=== PATIENT | female | born 1965 | race Caucasian/White ===

== ENCOUNTER 2023-01-19 10:15 | Outpatient (OUT) | payer OTHER, SELFPAY ==
[2023-01-19 10:38] LABS: Clarity Urine CLEAR (CLEAR); Color Urine DK. ORANGE (YELLOW)
[2023-01-19 10:39] LABS: Bilirubin Urine COLOR INTERFERENCE (NEGATIVE); Blood Urine COLOR INTERFERENCE (NEGATIVE); Glucose Urine UA COLOR INTERFERENCE mg/dL (NEGATIVE); Ketones Urine COLOR INTERFERENCE mg/dL (NEGATIVE); Leukocyte Esterase Urine COLOR INTERFERENCE (NEGATIVE); Nitrite Urine COLOR INTERFERENCE (NEGATIVE); Protein Urine COLOR INTERFERENCE mg/dL (NEG/TRACE); Urobilinogen Urine COLOR INTERFERENCE EU/dL (0.2-1.0); pH Urine COLOR INTERFERENCE (5.0-9.0)
== END 2023-01-19 10:16 | disposition home or self-care (01) ==
PROVIDERS: PCP Family Medicine; Visit Provider Nurse Practitioner Family
DX: R30.0 Dysuria (principal)
CPT/HCPCS: 81003; 87086; 87150; 87186

== ENCOUNTER 2023-01-20 13:46 | Outpatient (OUT) | payer OTHER, SELFPAY ==
--- NOTE | 2023-01-20 13:53 | US_ITS ---
The [address] [address] Patient Name: TRACEY THOMAS MRN: [id number] date: 1965 Sex: F Assigned Patient Location: [facility] Current Patient Location: [facility] Accession/Order Number: [id number] Exam Date: 01/20/2023 14:00 Report Date: 01/20/2023 14:50 At the request of: NICKO MEJÍA Procedure: US appendix EXAM: US appendix HISTORY: Dysuria R30.0 Right lower quadrant pain COMPARISON: None. TECHNIQUE: Real-time Limited abdomen ultrasound Findings: Nonvisualization of the appendix. No significant right lower quadrant free fluid. US/US appendix IMPRESSION: 1. Nonvisualization of the appendix. Electronically authenticated by: ADELINA SUTHERLAND Date: 01/20/2023 14:50
== END 2023-01-20 13:47 | disposition home or self-care (01) ==
PROVIDERS: PCP Family Medicine; Visit Provider Family Medicine
DX: R30.0 Dysuria (principal)
CPT/HCPCS: 76705

== ENCOUNTER 2023-01-22 15:16 | Outpatient (OUT) | payer OTHER, SELFPAY ==
--- NOTE | 2023-01-22 16:55 | CT_ITS ---
The [address] [address] Patient Name: TRACEY THOMAS MRN: [id number] date: 1965 Sex: F Assigned Patient Location: CT Current Patient Location: CT Accession/Order Number: [id number] Exam Date: 01/22/2023 16:40 Report Date: 01/22/2023 20:32 At the request of: NICKO MEJÍA Procedure: CT abdomen pelvis w con CT abdomen pelvis w con CLINICAL HISTORY: Kidney infection on antibiotics. Right lower quadrant abdominal and flank pain. Dysuria R30.0, Lower abdominal pain R10.30 COMPARISON: CT pelvis dated 06/15/2022. TECHNIQUE: Axial CT from lung bases through symphysis pubis following the injection of 100 mL of Omnipaque 300 iodinated contrast material. Oral contrast was administered. Coronal and sagittal reconstructions generated. Dose reduction techniques were achieved by using automated exposure control and/or adjustment of mA and/or kV according to patient size and/or use of iterative reconstruction technique. FINDINGS: CT ABDOMEN FINDINGS: Normal heart size. Lung bases with slight scarring but no acute process. Liver and spleen are normal in size. There is a too small to characterize right hepatic lobe 7 mm hypodensity. Bilateral adrenal indeterminate nodules on this postcontrast exam. 16 mm on the right and 22 mm on the left. Gallbladder and pancreas are grossly unremarkable. Normal bilateral renal enhancement with no perinephric edema. No abnormal enhancement or perinephric collection. No hydronephrosis or gross stones. Symmetric bilateral renal excretion of contrast on delayed imaging without filling defects. Slightly unfolded thoracic aorta without aneurysm. No retroperitoneal adenopathy. GI tract nondilated without obstruction. Appendix is negative. No other significant inflammatory change or ascites. Mild colonic diverticulosis without diverticulitis. CT PELVIS FINDINGS: Atrophic uterus and right ovary. 2.6 cm simple appearing cyst left ovary/adnexa, similar to prior. Urinary bladder demonstrates moderate cystocele. Otherwise unremarkable with no definite wall thickening or inflammatory change. No inguinal or pelvic sidewall adenopathy. There are chronic partially but incompletely healed left superior and inferior pubic rami deformities and also involving the medial acetabulum. Lumbar spondylosis. CT/CT abdomen pelvis w con IMPRESSION: Indeterminant bilateral adrenal nodules and too small characterize right hepatic lobe hypodensity. Recommend multiphasic MRI abdomen without and with IV contrast. Left adnexal cystic lesion similar to June 2022. Probably postmenopausal cyst but recommend follow-up pelvic ultrasound in one year. Urinary bladder with moderate cystocele. No gross wall thickening or inflammatory change. Upper urinary tract and kidneys are unremarkable. No CT evidence of pyelonephritis. No hydronephrosis. Electronically authenticated by: TEDDY KAUFFMAN Date: 01/22/2023 20:32
== END 2023-01-22 15:17 | disposition home or self-care (01) ==
LOC: CT 15:17
PROVIDERS: PCP Family Medicine; Visit Provider Family Medicine
DX: R30.0 Dysuria (principal); R10.30 Lower abdominal pain, unspecified
CPT/HCPCS: 74177; Q9967

== ENCOUNTER 2023-03-04 13:02 | Outpatient (OUT) | payer OTHER, SELFPAY ==
--- NOTE | 2023-03-04 | MR_ITS ---
[address] [address] Patient Name: TRACEY THOMAS MRN: [id number] date: 1965 Sex: F Assigned Patient Location: MRI Current Patient Location: Accession/Order Number: [id number] Exam Date: 03/04/2023 13:10 Report Date: 03/08/2023 07:50 At the request of: NICKO MEJÍA Procedure: MR abdomen wo/w con EXAMINATION: MR abdomen wo/w con HISTORY: liver cyst K76.89 COMPARISON: 01/22/2023 TECHNIQUE: A comprehensive MRI examination of the abdomen was performed to optimize visualization of suspected pathology. Images were obtained both before and after intravenous administration of Dotarem contrast. FINDINGS: LIVER: 6 mm nonenhancing area of signal abnormality in the right hepatic lobe best seen on axial image #13, a simple cyst is favored BILIARY: No visible dilatation or calcification. PANCREAS: No lesion, fluid collection, ductal dilatation, or atrophy. SPLEEN: No enlargement or focal lesion. KIDNEYS: No mass or obstruction. ADRENALS: Bilateral adrenal nodules with decrease in signal on out of phase versus in phase imaging consistent with adenomas AORTA/VASCULAR: No aneurysm or dissection. RETROPERITONEUM: No mass or adenopathy. BOWEL/MESENTERY: No visible mass, obstruction, or bowel wall thickening. ABDOMINAL WALL: No mass or hernia. BONES: No bony lesion or fracture. LUNG BASES: No visible pleural disease. Lung bases not well assessed with MRI. OTHER: Negative. MR/MR abdomen wo/w con IMPRESSION: 6 mm right hepatic lobe simple cyst Bilateral renal adenomas Electronically authenticated by: JEFF CARDONA Date: 03/08/2023 07:50
== END 2023-03-04 13:03 | disposition home or self-care (01) ==
LOC: MRI 13:03
PROVIDERS: PCP Family Medicine; Visit Provider Family Medicine
DX: K76.89 Other specified diseases of liver (principal); D30.02 Benign neoplasm of left kidney; D30.01 Benign neoplasm of right kidney
CPT/HCPCS: 74183; A9575

== ENCOUNTER 2023-05-04 13:40 | Outpatient (OUT) | payer OTHER, SELFPAY ==
--- OUTSIDE RECORDS SUMMARY | 2023-05-04 13:46 | XMS_ITS | CCD ---
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 MAGNESIUM ORAL CALCIUM CARBONATE/VITAMIN D3 (VITAMIN D-3 ORAL) POTASSIUM (POTASSIMIN ORAL) VITAMIN B COMPLEX (B COMPLEX 1 ORAL) BLACK COHOSH ORAL BIOFLAV/MV-MN/SOYB/EVEPR/HRB32 (WOMENS MENOPAUSE ANNETTA [place] ORAL) methylPREDNISolone (MEDROL, [place],) 4 mg Dose-Pack diclofenac XR (VOLTAREN-XR) 100 mg Tb24 HYDROcodone-Acetaminophen 7.5-325 mg per tablet PROZAC 20MG PULVULE Review of Systems: Reviewed and charted into [facility]. Physical Exam: PE reveals a female with the following vitals signs: Ht 177.8 cm (5' 10 ) Wt 90.7 kg (200 lb) BMI 28.70 kg/m Body mass index is 28.7 kg/m . General appearance: Well appearing, alert, in no acute distress, well-hydrated, well nourished. Psych: Mood and affect broad and appropriate Head: Normocephalic, no masses, lesions, tenderness or abnormalities Eyes: Anicteric sclera. Pupils are equally round and reactive to light. Extraocular movements are intact. ENT: Nares patent The patient has a stable gait with crutches. HIP EXAM: Right Left Hip extension 0 degrees 10 degrees Hip flexion 90 degrees 90 degrees Remainder of MSK exam deferred to prevent displacing fractures Motor/sensory function: Intact Radiology Findings: (I have reviewed appropriate radiology images and reports.) 06/05/22 XR Pelvis and Bilateral Femurs: Nondisplaced fractures of the left superior and inferior pubic ramus. The superior pubic ramus fracture is at the base of the ramus at the junction with the acetabulum. No acetabular fracture seen otherwise. Maintained sacroiliac joints and pubic symphysis. Minimal degenerative changes of both hip joints. Lower lumbar degenerative disc changes. Mild to moderate degenerative changes of both knees. No other acute fracture or dislocation. There are no bony erosions. 06/03/22 CT Pelvis [ Report only] : 1.Subacute, partially healed fractures involving the left superior and inferior pubic rami, with an age- indeterminate fracture through the medial left acetabular wall. This may represent an acute fracture. No additional traumatic changes are seen in the pelvis Assessment: (S32.592A) Closed fracture of multiple pubic rami, left, initial encounter ([facility]) (primary encounter diagnosis) (S32.475A) Closed nondisplaced fracture of medial wall of left acetabulum, initial encounter ([facility]) Plan: Based upon the evaluation today and after discussions with the patient, we will proceed with the following: - NWB x 6 weeks with crutches - Repeat x-ray in 6 weeks - Alternate Diclofenac and Tylenol up to every 4 hours to help with pain - Ice and Compression with Erwin wrap recommended - Patient informed to have disc of CT images sent to our office - RTC PRN; We will reach out via telephone in 6 weeks after reviewing x-ray of pelvis for next steps in treatment All patient questions were addressed and patient is satisfied with plan of care. documented in this encounter [facility] 06-05-2022 Note HNO ID: [id number] Author: RT Jaqui(R) Service: ? Author Type: Technologist Type: Progress Notes Filed: 06/05/2022 2:50 PM Note Text: Radiology Service Progress Note PATIENT NAME: Tracey Thomas DATE OF SERVICE: June 05, 2022 TIME: 2:49 PM PATIENT IDENTITY VERIFICATION COMPLETED USING TWO (2) IDENTIFIERS: Name and Date of confirmed by patient verbally. FALL SCREENING: Has the patient had 2 falls in the last year or 1 fall with injury or currently using an Ambulatory Assistive Device (Walker, Cane, Wheelchair, Crutches, etc.)? Yes, Patient High Risk for Falls What interventions were put in place to prevent falls during this visit? Yellow Falls Risk Wristband Applied PATIENT GENDER DATA: Female. status: : No status: NO. PATIENT RELEVANT IMPLANT DATA REVIEWED: Not Applicable RADIOLOGY DEPARTMENT: General X-ray: Exam(s) Completed: Pelvis X-Ray: Pelvis inlet/outlet Lower Extremity X-Ray(s): Femur, Bilateral PERIPHERAL IV DATA: Not applicable SIGNED BY: RT Jaqui(R) June 05, 2022 2:49 PM [facility] 06-05-2022 History of Present illness Narrative Radiology Service Progress Note PATIENT NAME: Tracey Thomas DATE OF SERVICE: June 05, 2022 TIME: 2:49 PM PATIENT IDENTITY VERIFICATION COMPLETED USING TWO (2) IDENTIFIERS: Name and Date of confirmed by patient verbally. FALL SCREENING: Has the patient had 2 falls in the last year or 1 fall with injury or currently using an Ambulatory Assistive Device (Walker, Cane, Wheelchair, Crutches, etc.)? Yes, Patient High Risk for Falls What interventions were put in place to prevent falls during this visit? Yellow Falls Risk Wristband Applied PATIENT GENDER DATA: Female. status: : No status: NO. PATIENT RELEVANT IMPLANT DATA REVIEWED: Not Applicable RADIOLOGY DEPARTMENT: General X-ray: Exam(s) Completed: Pelvis X-Ray: Pelvis inlet/outlet Lower Extremity X-Ray(s): Femur, Bilateral PERIPHERAL IV DATA: Not applicable SIGNED BY: RT Jaqui(R) June 05, 2022 2:49 PM documented in this encounter [facility] 05-25-2022 Note PROCEDURE: XR HIP LT 2 3V WO PELVIS HISTORY: Pain of left hip joint COMPARISON: None. FINDINGS: BONES:Thin irregular lucency through superior and inferior left pubic ramus suspicious for fractures. Intact femoral head and hip joint. SOFT TISSUES:No visible soft tissue swelling. EFFUSION:None visible. OTHER: Negative. IMPRESSION: 1. Suspect nondisplaced to minimally displaced fractures of the left superior and inferior pubic rami. Consider CT pelvis for further evaluation. Findings are being called to the office of Dr. Manrique at this time. Electronically authenticated by: SAMUEL CASTRO Date: 2022-05-25 14:11 [facility] Evaluation note Diagnosis Closed fracture of multiple pubic rami, left, initial encounter ([facility])- Primary Closed nondisplaced fracture of medial wall of left acetabulum, initial encounter ([facility]) documented in this encounter [facility] note* Diagnosis Pain Generalized pain documented in this encounter [facility] note* Diagnosis Buttock pain- Primary Mylagia and myositis, unspecified Closed fracture of multiple pubic rami, left, initial encounter ([facility]) Closed nondisplaced fracture of medial wall of left acetabulum, initial encounter ([facility]) documented in this encounter [facility] note* Diagnosis Pain Generalized pain Closed fracture of multiple pubic rami, left, initial encounter ([facility]) Closed nondisplaced fracture of medial wall of left acetabulum, initial encounter ([facility]) documented in this encounter [facility] for referral (narrative)* Diagnostic Procedure Only (Routine) - Pending Review Specialty Diagnoses / Procedures Referred By Contac t Referred To Contact XR IMAGING Diagnoses Closed fracture of multiple pubic rami, left, initial encounter ([facility]) Closed nondisplaced fracture of medial wall of left acetabulum, initial encounter ([facility]) Procedures XR HIP GENERAL 3V PELV/AP/LAT LEFT RADEX HIP UNILATERAL WITH PELVIS 2-3 VIEWS Berto Monge PA-C [address] [place], [place] [id number] Xr Imaging Referral ID Status Reason Start Date Expiration Date Visits Requested Visits Authorized [id number] Pending Review Auto-Generat ed Referral 06/05/2022 07/05/2023 1 1 * Diagnostic Procedure Only (Routine) - Pending Review Specialty Diagnoses / Procedures Referred By Contac t Referred To Contact XR IMAGING Diagnoses Closed fracture of multiple pubic rami, left, initial encounter ([facility]) Closed nondisplaced fracture of medial wall of left acetabulum, initial encounter ([facility]) Procedures XR PELVIS 1V AP RADIOLOGIC EXAMINATION PELVIS 1/2 VIEWS Berto Monge PA-C [address] [place] [id number] Xr Imaging Referral ID Status Reason Start Date Expiration Date Visits Requested Visits Authorized [id number] Pending Review Auto-Generat ed Referral 06/05/2022 07/05/2023 1 1 [facility] for referral (narrative)* Diagnostic Procedure Only (Routine) - Closed Specialty Diagnoses / Procedures Referred By Contac t Referred To Contact XR IMAGING Diagnoses Pain Procedures XR FEMUR GENERAL 2V AP/LAT RIGHT RADIOLOGIC EXAMINATION FEMUR MINIMUM 2 VIEWS Berto Monge PA-C [address] [place] [address] Xr Imaging Referral ID Status Reason Start Date Expiration Date V isits Requested Visits Authorized [id number] Closed Auto-Generate d Referral 06/04/2022 07/04/2023 1 1 * Diagnostic Procedure Only (Routine) - Closed Specialty Diagnoses / Procedures Referred By Contac t Referred To Contact XR IMAGING Diagnoses Pain Procedures XR FEMUR GENERAL 2V AP/LAT LEFT RADIOLOGIC EXAMINATION FEMUR MINIMUM 2 VIEWS Berto Monge PA-C [address] [place] [address] Xr Imaging Referral ID Status Reason Start Date Expiration Date V isits Requested Visits Authorized [id number] Closed Auto-Generate d Referral 06/04/2022 07/04/2023 1 1 * Diagnostic Procedure Only (Routine) - Closed Specialty Diagnoses / Procedures Referred By Contac t Referred To Contact XR IMAGING Diagnoses Pain Procedures XR PELVIS 2V INLET/OUTLET RADIOLOGIC EXAMINATION PELVIS 1/2 VIEWS Berto Monge PA-C [address] [place] [address] Xr Imaging Referral ID Status Reason Start Date Expiration Date V isits Requested Visits Authorized [id number] Closed Auto-Generate d Referral 06/04/2022 07/04/2023 1 1 [facility] for referral (narrative)* Diagnostic Procedure Only (Routine) - Closed Specialty Diagnoses / Procedures Referred By Contac t Referred To Contact XR IMAGING Diagnoses Pain Procedures XR HIP BILATERAL 5V PEL/AP/LAT EACH HIP RADEX HIPS BILATERAL WITH PELVIS MINIMUM 5 VIEWS Berto Monge PA-C [address] [id number] Xr Imaging [place] [address] Referral ID Status Reason Start Date Expiration Date V isits Requested Visits Authorized [id number] Closed Auto-Generate d Referral 06/04/2022 07/04/2023 1 1 [facility] for visit Narrative* Diagnostic Procedure Only (Routine) - Closed Specialty Diagnoses / Procedures Referred By Contac t Referred To Contact XR IMAGING Diagnoses Closed fracture of multiple pubic rami, left, initial encounter ([facility]) Closed nondisplaced fracture of medial wall of left acetabulum, initial encounter ([facility]) Procedures XR HIP GENERAL 3V PELV/AP/LAT LEFT RADEX HIP UNILATERAL WITH PELVIS 2-3 VIEWS Berto Monge PA-C [address] [place] [address] Xr Imaging [place] [address] Referral ID Status Reason Start Date Expiration Date V isits Requested Visits Authorized [id number] Closed Auto-Generate d Referral 06/05/2022 07/05/2023 1 1 [facility] Summary Purpose Family History No Family History Records FoundNo Family History Records FoundNo Family History Records Found Advance Directives No Advanced Directives Records FoundNo Advanced Directives Records FoundNo Advanced Directives Records Found Reason for Referral Specialty Diagnoses / Procedures Referred By Contac t Referred To Contact [facility] [place] Diagnoses Closed fracture of multiple pubic rami, left, initial encounter ([facility]) Closed nondisplaced fracture of medial wall of left acetabulum, initial encounter ([facility]) Buttock pain Procedures CONSULT [facility] OFFICE/OUTPATIENT [facility] 60-74 MINUTES Yan Dallas MD [address] [place] [address] Referral ID Status Reason Start Date Expiration Date Visits Requested Visits Authorized [id number] Authorized PCP Requested Referral 06/23/2022 06/23/2023 1 1 Additional Source Comments INFORMATION SOURCE (unrecogn ized section and content) DATE CREATED AUTHOR 11/29/2017 Brnuilda alberto DATE CREATED AUTHOR AUTHOR'S ORGANIZ ATION 06/06/2022 [facility] DATE CREATED AUTHOR AUTHOR'S ORGANIZ ATION 07/18/2022 [facility] Source Comments (unrecognize d section and content) In the event this informatio n is protected by the Federal Confidentiality of Alcohol and Drug Abuse Patient Records regulations: The Federal rules restrict any use of the information to criminally investigate or prosecute any alcohol or drug abuse patient[facility] event this information is protected by the Federal Confidentiality of Alcohol and Drug Abuse Patient Records regulations: The Federal rules restrict any use of the information to criminally investigate or prosecute any alcohol or drug abuse patient.[facility] event this information is protected by the Federal Confidentiality of Alcohol and Drug Abuse Patient Records regulations: The Federal rules restrict any use of the information to criminally investigate or prosecute any alcohol or drug abuse patient.[facility] event this information is protected by the Federal Confidentiality of Alcohol and Drug Abuse Patient Records regulations: The Federal rules restrict any use of the information to criminally investigate or prosecute any alcohol or drug abuse patient.[facility] event this information is protected by the Federal Confidentiality of Alcohol and Drug Abuse Patient Records regulations: The Federal rules restrict any use of the information to criminally investigate or prosecute any alcohol or drug abuse patient.[facility] Reason for Visit (unrecogniz ed section and content) Reason Comments Fracture Reason Comments Radio Gen A21 Specialty Diagnoses / Procedures Referred By Contac t Referred To Contact XR IMAGING Diagnoses Pain Procedures XR FEMUR GENERAL 2V AP/LAT RIGHT RADIOLOGIC EXAMINATION FEMUR MINIMUM 2 VIEWS Berto Monge PA-C [address] [place] [address] Xr Imaging Referral ID Status Reason Start Date Expiration Date V isits Requested Visits Authorized [id number] Closed Auto-Generate d Referral 06/04/2022 07/04/2023 1 1 Reason Comments Radiology XR Care Teams (unrecognized sec tion and content) 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 Crew 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 Relationship Specialty Start Date End Date Nicko Manrique MD PCP - General Family Medicine 08/09/14 [employer] Specialist Relationship Specialty Start Date End Date Nicko Manrique MD PCP - General Family Medicine 08/09/14 [employer] Specialist Relationship Specialty Start Date End Date Nicko Manrique MD PCP - General Family Medicine 08/09/14 [employer] Crew Specialist Relationship Specialty Start Date End Date Nicko Manrique MD PCP - General Family Medicine 08/09/14 [employer] Crew Specialist Relationship Specialty Start Date End Date Nicko Manrique MD PCP - General Family Medicine 08/09/14 FOR RECORDS PERTAINING TO PATIENTS WHO ARE OR HAVE BEEN ENROLLED IN A CHEMICAL DEPENDENCY/SUBSTANCEABUSE PROGRAM, SOME INFORMATION MAY BE OMITTED. This clinical summary was aggregated from multiple sources. Caution should be exercised in using it in the provision of clinical care. This summary normalizes information from multiple sources, and as a consequence, information in this document may materially change the coding, format and clinical context of patient data. In addition, data may be omitted in some cases. CLINICAL DECISIONS SHOULD BE BASED ON THE PRIMARY CLINICAL RECORDS. [facility]. provides no warranty or guarantee of the accuracy or completeness of information in this document.
[2023-05-04 13:53] LABS: Bilirubin Urine NEGATIVE (NEGATIVE); Blood Urine NEGATIVE (NEGATIVE); Clarity Urine CLEAR (CLEAR); Color Urine LT. YELLOW (YELLOW); Glucose Urine UA NEGATIVE (NEGATIVE); Ketones Urine NEGATIVE (NEGATIVE); Leukocyte Esterase Urine TRACE (NEGATIVE); Nitrite Urine NEGATIVE (NEGATIVE); Protein Urine NEGATIVE (NEG/TRACE); Specific Gravity Urine <=1.005 (1.005-1.025); Urobilinogen Urine 0.2 EU/dL (0.2-1.0)
== END 2023-05-04 13:41 | disposition home or self-care (01) ==
LOC: LAB 13:43
PROVIDERS: PCP Family Medicine; Visit Provider Nurse Practitioner Family
DX: R30.0 Dysuria (principal)
CPT/HCPCS: 81003; 87086; 87150; 87186

== ENCOUNTER 2023-06-08 12:19 | Outpatient (OUT) | payer OTHER, SELFPAY ==
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
[2023-06-08 13:19] LABS: Bilirubin Urine NEGATIVE (NEGATIVE); Blood Urine NEGATIVE (NEGATIVE); Clarity Urine CLEAR (CLEAR); Color Urine LT. YELLOW (YELLOW); Glucose Urine UA NEGATIVE (NEGATIVE); Ketones Urine NEGATIVE (NEGATIVE); Leukocyte Esterase Urine NEGATIVE (NEGATIVE); Nitrite Urine NEGATIVE (NEGATIVE); Protein Urine NEGATIVE (NEG/TRACE); Specific Gravity Urine <=1.005 (1.005-1.025); Urobilinogen Urine 0.2 EU/dL (0.2-1.0); pH Urine 5.5 (5.0-9.0)
[2023-06-08 13:55] LABS: Bacteria Urine NONE SEEN #/HPF (NONE SEEN); Cast Seen? NONE SEEN #/LPF (NONE SEEN); Crystals Seen? None Seen #/HPF (None Seen); Mucus Urine NONE SEEN (NONE SEEN); RBC Urine 0-2 #/HPF (0-2); Squamous Epithelial Cell Urine NONE SEEN #/LPF (NONE/RARE); WBC Urine NONE SEEN #/HPF (NONE SEEN)
== END 2023-06-08 12:20 | disposition home or self-care (01) ==
PROVIDERS: PCP Family Medicine; Visit Provider Family Medicine
DX: N39.0 Urinary tract infection, site not specified (principal)
CPT/HCPCS: 81001; 87086; 87150; 87186

== ENCOUNTER 2023-06-09 06:55 | Outpatient (OUT) | payer OTHER, SELFPAY ==
--- NOTE | 2023-06-09 06:57 | US_ITS ---
The [address] [address] Patient Name: TRACEY THOMAS MRN: [id number] date: 1965 Sex: F Assigned Patient Location: [place] Current Patient Location: [place] Accession/Order Number: [id number] Exam Date: 06/09/2023 07:00 Report Date: 06/09/2023 08:08 At the request of: NICKO MEJÍA Procedure: US renal bladder EXAM: US renal bladder HISTORY: . Recurrent Urinary Tract Infection N39.0 . COMPARISON: None. TECHNIQUE: Grayscale and color imaging was performed FINDINGS: Scanning of the right kidney demonstrates right kidney to measure 11.9 x 5.4 x 5.3 cm. Color-flow is noted. No solid renal cortical masses or hydronephrosis is noted. Left kidney measures 11.3 x 4.9 x 5.2 cm. Color-flow is noted. No solid renal cortical masses or hydronephrosis is noted. Scanning of the filled bladder demonstrates no masses. No wall thickening is noted. Left ureteral jet was noted. Right ureteral jet was not identified. Prevoid volume was 597 cc and post void residual was 92 cc. US/US renal bladder IMPRESSION: 1. Normal ultrasound of the kidneys. 2. Normal-appearing filled bladder. 3. Post void residual was 92 cc for a post void residual of approximately 15%. Electronically authenticated by: JEFF BERG Date: 06/09/2023 08:08
--- OUTSIDE RECORDS SUMMARY | 2023-06-09 06:58 | XMS_ITS | CCD ---
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 Jaqui(R) Service: ? Author Type: [...] RT Jaqui(R) June 05, 2022 2:49 PM [facility] 06-05-2022 History of Present illness Narrative Radiology [...] 2022 2:49 PM documented in this encounter [facility] 05-25-2022 Note PROCEDURE: XR HIP LT 2 [...] Manrique at this time. Electronically authenticated by: SAMEUL CASTRO Date: 2022-05-25 14:11 [facility] Evaluation note Diagnosis Closed fracture of multiple pubic rami, left, initial encounter ([facility])- Primary Closed nondisplaced fracture of medial wall of left acetabulum, initial encounter (HCC) documented in this encounter [facility] note* Diagnosis Pain Generalized pain documented in this encounter [facility] note* Diagnosis Buttock pain- Primary Mylagia and myositis, unspecified Closed fracture of multiple pubic rami, left, initial encounter ([facility]) Closed nondisplaced fracture of medial wall of left acetabulum, initial encounter ([facility]) documented in this encounter [facility] note* Diagnosis Pain Generalized pain Closed fracture of multiple pubic rami, left, initial encounter ([facility]) Closed nondisplaced fracture of medial wall of left acetabulum, initial encounter ([facility]) documented in this encounter [facility] for referral (narrative)* Diagnostic Procedure Only (Routine) - Pending Review Specialty Diagnoses / Procedures Referred By Contac t Referred To Contact XR IMAGING Diagnoses Closed fracture of multiple pubic rami, left, initial encounter ([facility]) Closed nondisplaced fracture of medial wall of left acetabulum, initial encounter ([facility]) Procedures XR HIP GENERAL 3V PELV/AP/LAT LEFT RADEX HIP UNILATERAL WITH PELVIS 2-3 VIEWS Berto Monge PA-C [address] [place], [place] [id number] Xr Imaging Referral ID Status Reason Start Date Expiration Date Visits Requested Visits Authorized [id number] Pending Review Auto-Generat ed Referral 06/05/2022 07/05/2023 1 1 * Diagnostic Procedure Only (Routine) - Pending Review Specialty Diagnoses / Procedures Referred By Contac t Referred To Contact XR IMAGING Diagnoses Closed fracture of multiple pubic rami, left, initial encounter ([facility]) Closed nondisplaced fracture of medial wall of left acetabulum, initial encounter ([facility]) Procedures XR PELVIS 1V AP RADIOLOGIC EXAMINATION PELVIS 1/2 VIEWS Berto Monge PA-C [address] [place] [address] Xr Imaging Referral ID Status Reason Start Date Expiration Date Visits Requested Visits Authorized [id number] Pending Review Auto-Generat ed Referral 06/05/2022 07/05/2023 1 1 [facility] for referral (narrative)* Diagnostic Procedure Only (Routine) - Closed Specialty Diagnoses / Procedures Referred By Contac t Referred To Contact XR IMAGING Diagnoses Pain Procedures XR FEMUR GENERAL 2V AP/LAT RIGHT RADIOLOGIC EXAMINATION FEMUR MINIMUM 2 VIEWS Berto Monge PA-C [address] [place] [address] Xr Imaging Referral ID Status Reason Start Date Expiration Date V isits Requested Visits Authorized [id number] Closed Auto-Generate d Referral 06/04/2022 07/04/2023 1 1 * Diagnostic Procedure Only (Routine) - Closed Specialty Diagnoses / Procedures Referred By Contac t Referred To Contact XR IMAGING Diagnoses Pain Procedures XR FEMUR GENERAL 2V AP/LAT LEFT RADIOLOGIC EXAMINATION FEMUR MINIMUM 2 VIEWS Berto Monge PA-C [address] [place] [address] Xr Imaging Referral ID Status Reason Start Date Expiration Date V isits Requested Visits Authorized [id number] Closed Auto-Generate d Referral 06/04/2022 07/04/2023 1 1 * Diagnostic Procedure Only (Routine) - Closed Specialty Diagnoses / Procedures Referred By Contac t Referred To Contact XR IMAGING Diagnoses Pain Procedures XR PELVIS 2V INLET/OUTLET RADIOLOGIC EXAMINATION PELVIS 1/2 VIEWS Berto Monge PA-C [address] [place] [address] Xr Imaging Referral ID Status Reason Start Date Expiration Date V isits Requested Visits Authorized [id number] Closed Auto-Generate d Referral 06/04/2022 07/04/2023 1 1 [facility] for referral (narrative)* Diagnostic Procedure Only (Routine) - Closed Specialty Diagnoses / Procedures Referred By Contac t Referred To Contact XR IMAGING Diagnoses Pain Procedures XR HIP BILATERAL 5V PEL/AP/LAT EACH HIP RADEX HIPS BILATERAL WITH PELVIS MINIMUM 5 VIEWS Berto Monge PA-C [address] [id number] Xr Imaging [place] [address] Referral ID Status Reason Start Date Expiration Date V isits Requested Visits Authorized [id number] Closed Auto-Generate d Referral 06/04/2022 07/04/2023 1 1 [facility] for visit Narrative* Diagnostic Procedure Only (Routine) - Closed Specialty Diagnoses / Procedures Referred By Contac t Referred To Contact XR IMAGING Diagnoses Closed fracture of multiple pubic rami, left, initial encounter ([facility]) Closed nondisplaced fracture of medial wall of left acetabulum, initial encounter ([facility]) Procedures XR HIP GENERAL 3V PELV/AP/LAT LEFT RADEX HIP UNILATERAL WITH PELVIS 2-3 VIEWS Berto Monge PA-C [address] [place] [address] Xr Imaging [place] [address] Referral ID Status Reason Start Date Expiration Date V isits Requested Visits Authorized [id number] Closed Auto-Generate d Referral 06/05/2022 07/05/2023 1 1 [facility] Summary Purpose Family History No Family History Records FoundNo Family History Records FoundNo Family History Records Found Advance Directives No Advanced Directives Records FoundNo Advanced Directives Records FoundNo Advanced Directives Records Found Reason for Referral Specialty Diagnoses / Procedures Referred By Contac t Referred To Contact [facility] [place] Diagnoses Closed fracture of multiple pubic rami, left, initial encounter (HCC) Closed nondisplaced fracture of medial wall of left acetabulum, initial encounter ([facility]) Buttock pain Procedures [facility]OUTPATIENT [facility] 60-74 MINUTES Yan Dallas MD [address] [place] [address] Referral ID Status Reason Start Date Expiration Date Visits Requested Visits Authorized [id number] Authorized PCP Requested Referral 06/23/2022 06/23/2023 1 1 Additional Source Comments INFORMATION SOURCE (unrecogn ized section and content) DATE CREATED AUTHOR 11/29/2017 Brunilda alberto DATE CREATED AUTHOR AUTHOR'S ORGANIZ ATION 06/06/2022 [facility] DATE CREATED AUTHOR AUTHOR'S ORGANIZ ATION 07/18/2022 [employer] Gumaro hernandez Source Comments (unrecognize d section and content) In the event this informatio n is protected by the Federal Confidentiality of Alcohol and Drug Abuse Patient Records regulations: The Federal rules restrict any use of the information to criminally investigate or prosecute any alcohol or drug abuse patient.[facility] the event this information is protected by the Federal Confidentiality of Alcohol and Drug Abuse Patient Records regulations: The Federal rules restrict any use of the information to criminally investigate or prosecute any alcohol or drug abuse patient.[facility] the event this information is protected by the Federal Confidentiality of Alcohol and Drug Abuse Patient Records regulations: The Federal rules restrict any use of the information to criminally investigate or prosecute any alcohol or drug abuse patient.[facility] the event this information is protected by the Federal Confidentiality of Alcohol and Drug Abuse Patient Records regulations: The Federal rules restrict any use of the information to criminally investigate or prosecute any alcohol or drug abuse patient.[facility] the event this information is protected by the Federal Confidentiality of Alcohol and Drug Abuse Patient Records regulations: The Federal rules restrict any use of the information to criminally investigate or prosecute any alcohol or drug abuse patient.[facility] Reason for Visit (unrecogniz ed section and content) Reason Comments Fracture Reason Comments Radio Gen A21 Specialty Diagnoses / Procedures Referred By Contac t Referred To Contact XR IMAGING Diagnoses Pain Procedures XR FEMUR GENERAL 2V AP/LAT RIGHT RADIOLOGIC EXAMINATION FEMUR MINIMUM 2 VIEWS Berto Monge PA-C [address] [place] [address] Xr Imaging Referral ID Status Reason Start Date Expiration Date V isits Requested Visits Authorized [id number] Closed Auto-Generate d Referral 06/04/2022 07/04/2023 1 1 Reason Comments Radiology XR Care Teams (unrecognized sec tion and content) 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 [employer] [facility]. provides no warranty or guarantee of the accuracy or completeness of information in this document.
== END 2023-06-09 06:56 | disposition home or self-care (01) ==
LOC: US 06:56
PROVIDERS: PCP Family Medicine; Visit Provider Family Medicine
DX: N39.0 Urinary tract infection, site not specified (principal)
CPT/HCPCS: 76770; 80053; 80061; 83036; 83525; 84436; 84443; 84481

== ENCOUNTER 2023-06-09 09:01 | Outpatient (OUT) | payer OTHER, SELFPAY ==
--- OUTSIDE RECORDS SUMMARY | 2023-06-09 09:06 | XMS_ITS | CCD ---
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 PROCEDURE: XR HIP LT 2 [...] by: SAMUEL CASTRO Date: 2022-05-25 14:11 [facility] Evaluation note Diagnosis Closed fracture of multiple pubic rami, left, initial encounter ([facility])- Primary Closed nondisplaced fracture of medial wall of left acetabulum, initial encounter (HCC) documented in this encounter [facility] note* Diagnosis Pain Generalized pain documented in this encounter [facility] note* Diagnosis Buttock pain- Primary Mylagia and myositis, unspecified Closed fracture of multiple pubic rami, left, initial encounter ([facility]) Closed nondisplaced fracture of medial wall of left acetabulum, initial encounter ([facility]) documented in this encounter [facility] note* Diagnosis Pain Generalized pain Closed fracture of multiple pubic rami, left, initial encounter ([facility]) Closed nondisplaced fracture of medial wall of left acetabulum, initial encounter ([facility]) documented in this encounter [facility] for referral (narrative)* Diagnostic Procedure Only (Routine) - Pending Review Specialty Diagnoses / Procedures Referred By Contac t Referred To Contact XR IMAGING Diagnoses Closed fracture of multiple pubic rami, left, initial encounter ([facility]) Closed nondisplaced fracture of medial wall of left acetabulum, initial encounter ([facility]) Procedures XR HIP GENERAL 3V PELV/AP/LAT LEFT RADEX HIP UNILATERAL WITH PELVIS 2-3 VIEWS Berto Monge PA-C [address] [place], [place] [id number] Xr Imaging Referral ID Status Reason Start Date Expiration Date Visits Requested Visits Authorized [id number] Pending Review Auto-Generat ed Referral 06/05/2022 07/05/2023 1 1 * Diagnostic Procedure Only (Routine) - Pending Review Specialty Diagnoses / Procedures Referred By Contac t Referred To Contact XR IMAGING Diagnoses Closed fracture of multiple pubic rami, left, initial encounter ([facility]) Closed nondisplaced fracture of medial wall of left acetabulum, initial encounter ([facility]) Procedures XR PELVIS 1V AP RADIOLOGIC EXAMINATION PELVIS 1/2 VIEWS Berto Monge PA-C [address] [place] [id number] Xr Imaging Referral ID Status Reason Start Date Expiration Date Visits Requested Visits Authorized [id number] Pending Review Auto-Generat ed Referral 06/05/2022 07/05/2023 [address] [facility] for referral (narrative)* Diagnostic Procedure Only (Routine) - Closed Specialty Diagnoses / Procedures Referred By Contac t Referred To Contact XR IMAGING Diagnoses Pain Procedures XR FEMUR GENERAL 2V AP/LAT RIGHT RADIOLOGIC EXAMINATION FEMUR MINIMUM 2 VIEWS Berto Monge PA-C [address] [place] [address] Xr Imaging Referral ID Status Reason Start Date Expiration Date V isits Requested Visits Authorized [id number] Closed Auto-Generate d Referral 06/04/2022 07/04/2023 1 1 * Diagnostic Procedure Only (Routine) - Closed Specialty Diagnoses / Procedures Referred By Contac t Referred To Contact XR IMAGING Diagnoses Pain Procedures XR FEMUR GENERAL 2V AP/LAT LEFT RADIOLOGIC EXAMINATION FEMUR MINIMUM 2 VIEWS Berto Monge PA-C [address] [place] [address] Xr Imaging Referral ID Status Reason Start Date Expiration Date V isits Requested Visits Authorized [id number] Closed Auto-Generate d Referral 06/04/2022 07/04/2023 1 1 * Diagnostic Procedure Only (Routine) - Closed Specialty Diagnoses / Procedures Referred By Contac t Referred To Contact XR IMAGING Diagnoses Pain Procedures XR PELVIS 2V INLET/OUTLET RADIOLOGIC EXAMINATION PELVIS 1/2 VIEWS Berto Monge PA-C [address] [place] [address] Xr Imaging Referral ID Status Reason Start Date Expiration Date V isits Requested Visits Authorized [id number] Closed Auto-Generate d Referral 06/04/2022 07/04/2023 [address] [facility] for referral (narrative)* Diagnostic Procedure Only (Routine) - Closed Specialty Diagnoses / Procedures Referred By Contac t Referred To Contact XR IMAGING Diagnoses Pain Procedures XR HIP BILATERAL 5V PEL/AP/LAT EACH HIP RADEX HIPS BILATERAL WITH PELVIS MINIMUM 5 VIEWS Berto Monge PA-C [address] [id number] Xr Imaging [place] [address] Referral ID Status Reason Start Date Expiration Date V isits Requested Visits Authorized [id number] Closed Auto-Generate d Referral 06/04/2022 07/04/2023 [address] [facility] for visit Narrative* Diagnostic Procedure Only (Routine) - Closed Specialty Diagnoses / Procedures Referred By Contac t Referred To Contact XR IMAGING Diagnoses Closed fracture of multiple pubic rami, left, initial encounter ([facility]) Closed nondisplaced fracture of medial wall of left acetabulum, initial encounter ([facility]) Procedures XR HIP GENERAL 3V PELV/AP/LAT LEFT RADEX HIP UNILATERAL WITH PELVIS 2-3 VIEWS Berto Monge PA-C [address] [place] [address] Xr Imaging [place] [address] Referral ID Status Reason Start Date Expiration Date V isits Requested Visits Authorized [id number] Closed Auto-Generate d Referral 06/05/2022 07/05/2023 1 1 [facility] Summary Purpose Family History No Family History Records FoundNo Family History Records FoundNo Family History Records Found Advance Directives No Advanced Directives Records FoundNo Advanced Directives Records FoundNo Advanced Directives Records Found Reason for Referral Specialty Diagnoses / Procedures Referred By Contac t Referred To Contact [facility] Diagnoses Closed fracture of multiple pubic rami, left, initial encounter (HCC) Closed nondisplaced fracture of medial wall of left acetabulum, initial encounter ([facility]) Buttock pain Procedures [facility] 60-74 MINUTES Yan Dallas MD [address] [place] [address] Referral ID Status Reason Start Date Expiration Date Visits Requested Visits Authorized [id number] Authorized PCP Requested Referral 06/23/2022 06/23/2023 1 1 Additional Source Comments INFORMATION SOURCE (unrecogn ized section and content) DATE CREATED AUTHOR 11/29/2017 Brunilda alberto DATE CREATED AUTHOR AUTHOR'S ORGANIZ ATION 06/06/2022 [facility] DATE CREATED AUTHOR AUTHOR'S ORGANIZ ATION 07/18/2022 [facility]um[facility] hernandez Source Comments (unrecognize d section and content) In the event this informatio n is protected by the Federal Confidentiality of Alcohol and Drug Abuse Patient Records regulations: The Federal rules restrict any use of the information to criminally investigate or prosecute any alcohol or drug abuse patient.[facility] the event this information is protected by the Federal Confidentiality of Alcohol and Drug Abuse Patient Records regulations: The Federal rules restrict any use of the information to criminally investigate or prosecute any alcohol or drug abuse patient.[facility] the event this information is protected by the Federal Confidentiality of Alcohol and Drug Abuse Patient Records regulations: The Federal rules restrict any use of the information to criminally investigate or prosecute any alcohol or drug abuse patient.[facility] the event this information is protected by the Federal Confidentiality of Alcohol and Drug Abuse Patient Records regulations: The Federal rules restrict any use of the information to criminally investigate or prosecute any alcohol or drug abuse patient.[facility] the event this information is protected by the Federal Confidentiality of Alcohol and Drug Abuse Patient Records regulations: The Federal rules restrict any use of the information to criminally investigate or prosecute any alcohol or drug abuse patient.[facility] Reason for Visit (unrecogniz ed section and content) Reason Comments Fracture Reason Comments Radio Gen A21 Specialty Diagnoses / Procedures Referred By Contac t Referred To Contact XR IMAGING Diagnoses Pain Procedures XR FEMUR GENERAL 2V AP/LAT RIGHT RADIOLOGIC EXAMINATION FEMUR MINIMUM 2 VIEWS Berto Monge PA-C [address] [place] [address] Xr Imaging Referral ID Status Reason Start Date Expiration Date V isits Requested Visits Authorized [id number] Closed Auto-Generate d Referral 06/04/2022 07/04/2023 1 1 Reason Comments Radiology XR Care Teams (unrecognized sec tion and content) Neurobiologist Relationship Specialty Start Date End Date Nicko Manrique MD PCP - General Family Medicine 08/09/14 Neurobiologist Relationship Specialty Start Date End Date Nicko Manrique MD PCP - General Family Medicine 08/09/14 Neurobiologist Relationship Specialty Start Date End Date Nicko Manrique MD PCP - General Family Medicine 08/09/14 Neurobiologist Relationship Specialty Start Date End Date Nicko Manrique MD PCP - General Family Medicine 08/09/14 Neurobiologist Relationship Specialty Start Date End Date Nicko [...] BE BASED ON THE PRIMARY CLINICAL RECORDS. [facility] [facility]. provides no warranty or guarantee of the accuracy or completeness of information in this document.
[2023-06-09 10:15] LABS: Basophils Absolute Auto 0.1 10^3/uL (0.0-0.1); Basophils Percent Auto 0.8 % (0.2-2.0); Eosinophils Absolute Auto 0.5 10^3/uL (0.0-0.7); Eosinophils Percent Auto 5.8 % (0.9-7.0); Hematocrit 40.3 % (36.0-48.0); Immature Granulocytes Abs Auto 0.04 10^3/uL (0.00-0.03); Immature Granulocytes Pct Auto 0.5 % (0.0-0.5); Lymphocytes Percent Auto 22.3 % (20.5-60.0); Mean Corpuscular HGB Conc 32.3 g/dL (29.9-35.2); Mean Platelet Volume 11.4 fL (9.5-13.5); Monocytes Absolute Auto 0.7 10^3/uL (0.3-0.8); Monocytes Percent Auto 7.6 % (1.7-12.0); Neutrophils Absolute Auto 5.6 10^3/uL (1.4-6.5); Platelet Count 237 10^3/uL (150-450); Red Blood Count 4.48 10^6/uL (4.20-5.40); Red Cell Distribution Width 14.8 % (11.0-15.0); White Blood Count 8.8 10^3/uL (4.0-11.0)
[2023-06-09 10:23] LABS: Alanine Aminotransferase 25 U/L (14-59); Albumin Globulin Ratio 1.1; Albumin Level 3.5 g/dL (3.4-5.0); Alkaline Phosphatase 55 U/L (46-116); Anion Gap 10.9; Aspartate Amino Transferase 15 U/L (15-37); BUN Creatinine Ratio 31.7; Bilirubin Total 0.2 mg/dL (0.2-1.0); Calcium 8.9 mg/dL (8.5-10.1); Carbon Dioxide 27.6 mmol/L (21.0-32.0); Chloride 103 mmol/L (98-107); Chol HDL Ratio 3.4; Cholesterol 202 mg/dL (<=200); Estimated GFR (African America >60 (>=60); Estimated GFR (Non-African Ame >60 (>=60); Free T3 2.45 pg/mL (2.18-3.98); Globulin 3.2 g/dL; Glucose 99 mg/dL (74-106); HDL Cholesterol 60 mg/dL (40-60); Potassium 4.5 mmol/L (3.5-5.1); Sodium 137 mmol/L (136-145); Thyroid Stimulating Hormone 2.631 uIU/mL (0.358-3.740); Total Protein 6.7 g/dL (6.4-8.2); Triglycerides 45 mg/dL (<=150)
[2023-06-09 10:51] LABS: Estimated Average Glucose 111 mg/dL; Glycohemoglobin A1C 5.5 % (4.5-6.2)
[2023-06-10 11:09] LABS: Insulin 7.9 uIU/mL (2.6-24.9)
== END 2023-06-09 09:02 | disposition home or self-care (01) ==
LOC: LAB 09:02
PROVIDERS: PCP Family Medicine; Visit Provider Nurse Practitioner Family
DX: Z00.00 Encounter for general adult medical examination without abnormal findings (principal); N39.0 Urinary tract infection, site not specified
CPT/HCPCS: 36415; 76770; 80053; 80061; 83036; 83525; 84436; 84443; 84481; 85025

== ENCOUNTER 2023-07-19 15:23 | Outpatient (OUT) | payer SELFPAY ==
[2023-07-19 15:36] LABS: Clarity Urine CLEAR (CLEAR); Color Urine DK. ORANGE (YELLOW); Specific Gravity Urine <=1.005 (1.005-1.025)
--- OUTSIDE RECORDS SUMMARY | 2023-07-19 15:38 | XMS_ITS | CCD ---
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 June 05, 2022 2:49 PM [facility] 06-05-2022 History of Present illness [...] 2022 2:49 PM documented in this encounter [facility] 05-25-2022 Note PROCEDURE: XR HIP LT 2 [...] by: SAMUEL CASTRO Date: 2022-05-25 14:11 [facility] Evaluation note Diagnosis Closed fracture of multiple pubic rami, left, initial encounter ([facility])- Primary Closed nondisplaced fracture of medial wall of left acetabulum, initial encounter (HCC) documented in this encounter [facility] note* Diagnosis Pain Generalized pain documented in this encounter [facility] note* Diagnosis Buttock pain- Primary Mylagia and myositis, unspecified Closed fracture of multiple pubic rami, left, initial encounter ([facility]) Closed nondisplaced fracture of medial wall of left acetabulum, initial encounter ([facility]) documented in this encounter [facility] note* Diagnosis Pain Generalized pain Closed fracture of multiple pubic rami, left, initial encounter ([facility]) Closed nondisplaced fracture of medial wall of left acetabulum, initial encounter ([facility]) documented in this encounter [facility] for referral (narrative)* Diagnostic Procedure Only (Routine) - Pending Review Specialty Diagnoses / Procedures Referred By Contac t Referred To Contact XR IMAGING Diagnoses Closed fracture of multiple pubic rami, left, initial encounter ([facility]) Closed nondisplaced fracture of medial wall of left acetabulum, initial encounter ([facility]) Procedures XR HIP GENERAL 3V PELV/AP/LAT LEFT RADEX HIP UNILATERAL WITH PELVIS 2-3 VIEWS Berto Monge PA-C [address] [place], [place] [id number] Xr Imaging Referral ID Status Reason Start Date Expiration Date Visits Requested Visits Authorized [id number] Pending Review Auto-Generat ed Referral 06/05/2022 07/05/2023 1 1 * Diagnostic Procedure Only (Routine) - Pending Review Specialty Diagnoses / Procedures Referred By Contac t Referred To Contact XR IMAGING Diagnoses Closed fracture of multiple pubic rami, left, initial encounter ([facility]) Closed nondisplaced fracture of medial wall of left acetabulum, initial encounter ([facility]) Procedures XR PELVIS 1V AP RADIOLOGIC EXAMINATION PELVIS 1/2 VIEWS Berto Monge PA-C [address] [place] [id number] Xr Imaging Referral ID Status Reason Start Date Expiration Date Visits Requested Visits Authorized [id number] Pending Review Auto-Generat ed Referral 06/05/2022 07/05/2023 1 1 [facility] for referral (narrative)* Diagnostic Procedure Only (Routine) - Closed Specialty Diagnoses / Procedures Referred By Contac t Referred To Contact XR IMAGING Diagnoses Pain Procedures XR FEMUR GENERAL 2V AP/LAT RIGHT RADIOLOGIC EXAMINATION FEMUR MINIMUM 2 VIEWS Berto Monge PA-C [address] [place] [address] Xr Imaging Referral ID Status Reason Start Date Expiration Date V isits Requested Visits Authorized [id number] Closed Auto-Generate d Referral 06/04/2022 07/04/2023 1 1 * Diagnostic Procedure Only (Routine) - Closed Specialty Diagnoses / Procedures Referred By Contac t Referred To Contact XR IMAGING Diagnoses Pain Procedures XR FEMUR GENERAL 2V AP/LAT LEFT RADIOLOGIC EXAMINATION FEMUR MINIMUM 2 VIEWS Berto Monge PA-C [address] [place] [address] Xr Imaging Referral ID Status Reason Start Date Expiration Date V isits Requested Visits Authorized [id number] Closed Auto-Generate d Referral 06/04/2022 07/04/2023 1 1 * Diagnostic Procedure Only (Routine) - Closed Specialty Diagnoses / Procedures Referred By Contac t Referred To Contact XR IMAGING Diagnoses Pain Procedures XR PELVIS 2V INLET/OUTLET RADIOLOGIC EXAMINATION PELVIS 1/2 VIEWS Berto Monge PA-C [address] [place] [address] Xr Imaging Referral ID Status Reason Start Date Expiration Date V isits Requested Visits Authorized [id number] Closed Auto-Generate d Referral 06/04/2022 07/04/2023 1 1 [facility] for referral (narrative)* Diagnostic Procedure Only (Routine) - Closed Specialty Diagnoses / Procedures Referred By Contac t Referred To Contact XR IMAGING Diagnoses Pain Procedures XR HIP BILATERAL 5V PEL/AP/LAT EACH HIP RADEX HIPS BILATERAL WITH PELVIS MINIMUM 5 VIEWS Berto Monge PA-C [address] [id number] Xr Imaging [place] [address] Referral ID Status Reason Start Date Expiration Date V isits Requested Visits Authorized [id number] Closed Auto-Generate d Referral 06/04/2022 07/04/2023 1 1 [facility] for visit Narrative* Diagnostic Procedure Only (Routine) - Closed Specialty Diagnoses / Procedures Referred By Contac t Referred To Contact XR IMAGING Diagnoses Closed fracture of multiple pubic rami, left, initial encounter ([facility]) Closed nondisplaced fracture of medial wall of left acetabulum, initial encounter ([facility]) Procedures XR HIP GENERAL 3V PELV/AP/LAT LEFT RADEX HIP UNILATERAL WITH PELVIS 2-3 VIEWS Berto Monge PA-C [address] [place] [address] Xr Imaging [place] [address] Referral ID Status Reason Start Date Expiration Date V isits Requested Visits Authorized [id number] Closed Auto-Generate d Referral 06/05/2022 07/05/2023 1 1 [facility] Summary Purpose Family History No Family History Records FoundNo Family History Records FoundNo Family History Records Found Advance Directives No Advanced Directives Records FoundNo Advanced Directives Records FoundNo Advanced Directives Records Found Reason for Referral Specialty Diagnoses / Procedures Referred By Contac t Referred To Contact [facility] [place] Diagnoses Closed fracture of multiple pubic rami, left, initial encounter ([facility]) Closed nondisplaced fracture of medial wall of left acetabulum, initial encounter ([facility]) Buttock pain Procedures [facility]OUTPATIENT [facility] 60-74 MINUTES Yan Dallas MD [address] [place] [address] Referral ID Status Reason Start Date Expiration Date Visits Requested Visits Authorized [id number] Authorized PCP Requested Referral 06/23/2022 06/23/2023 1 1 Additional Source Comments INFORMATION SOURCE (unrecogn ized section and content) DATE CREATED AUTHOR 11/29/2017 Brunilda alberto DATE CREATED AUTHOR AUTHOR'S ORGANIZ ATION 06/06/2022 [facility] DATE CREATED AUTHOR AUTHOR'S ORGANIZ ATION 07/18/2022 [facility] Gumaro hernandez Source Comments (unrecognize d section and content) In the event this informatio n is protected by the Federal Confidentiality of Alcohol and Drug Abuse Patient Records regulations: The Federal rules restrict any use of the information to criminally investigate or prosecute any alcohol or drug abuse patient.[facility] the event this information is protected by the Federal Confidentiality of Alcohol and Drug Abuse Patient Records regulations: The Federal rules restrict any use of the information to criminally investigate or prosecute any alcohol or drug abuse patient.[facility] the event this information is protected by the Federal Confidentiality of Alcohol and Drug Abuse Patient Records regulations: The Federal rules restrict any use of the information to criminally investigate or prosecute any alcohol or drug abuse patient.[facility] the event this information is protected by the Federal Confidentiality of Alcohol and Drug Abuse Patient Records regulations: The Federal rules restrict any use of the information to criminally investigate or prosecute any alcohol or drug abuse patient.[facility] the event this information is protected by the Federal Confidentiality of Alcohol and Drug Abuse Patient Records regulations: The Federal rules restrict any use of the information to criminally investigate or prosecute any alcohol or drug abuse patient.[facility] Reason for Visit (unrecogniz ed section and content) Reason Comments Fracture Reason Comments Radio Gen A21 Specialty Diagnoses / Procedures Referred By Contac t Referred To Contact XR IMAGING Diagnoses Pain Procedures XR FEMUR GENERAL 2V AP/LAT RIGHT RADIOLOGIC EXAMINATION FEMUR MINIMUM 2 VIEWS Berto Monge PA-C [address] [place] [address] Xr Imaging Referral ID Status Reason Start Date Expiration Date V isits Requested Visits Authorized [id number] Closed Auto-Generate d Referral 06/04/2022 07/04/2023 1 1 Reason Comments Radiology XR Care Teams (unrecognized sec tion and content) [employer] Relationship Specialty Start Date End Date Nicko Manrique MD PCP - General Family Medicine 08/09/14 [employer] Relationship Specialty Start Date End Date Nicko Manrique MD PCP - General Family Medicine 08/09/14 [employer] Relationship Specialty Start Date End Date Nicko Manrique MD PCP - General Family Medicine 08/09/14 [employer] Relationship Specialty Start Date End Date Nicko Manrique MD PCP - General Family Medicine 08/09/14 [employer] Relationship Specialty Start Date End Date Nicko [...] BE BASED ON THE PRIMARY CLINICAL RECORDS. [facility] [employer] [facility]. provides no warranty or guarantee of the accuracy or completeness of information in this document.
[2023-07-19 15:42] LABS: Bilirubin Urine COLOR INTERFERENCE (NEGATIVE); Blood Urine COLOR INTERFERENCE (NEGATIVE); Glucose Urine UA COLOR INTERFERENCE mg/dL (NEGATIVE); Ketones Urine COLOR INTERFERENCE mg/dL (NEGATIVE); Leukocyte Esterase Urine COLOR INTERFERENCE (NEGATIVE); Nitrite Urine COLOR INTERFERENCE (NEGATIVE); Protein Urine COLOR INTERFERENCE mg/dL (NEG/TRACE); Urobilinogen Urine COLOR INTERFERENCE EU/dL (0.2-1.0); pH Urine COLOR INTERFERENCE (5.0-9.0)
[2023-07-19 15:43] LABS: Bacteria Urine NONE SEEN #/HPF (NONE SEEN); Cast Seen? NONE SEEN #/LPF (NONE SEEN); Crystals Seen? None Seen #/HPF (None Seen); Mucus Urine NONE SEEN (NONE SEEN); RBC Urine 0-2 #/HPF (0-2); Squamous Epithelial Cell Urine FEW #/LPF (NONE/RARE); Urine Culture Indicated ALREADY ORDERED; WBC Urine 0-2 #/HPF (NONE SEEN)
== END 2023-07-19 15:24 | disposition home or self-care (01) ==
LOC: LAB 15:23
PROVIDERS: PCP Family Medicine; Visit Provider Nurse Practitioner Family
DX: N39.0 Urinary tract infection, site not specified (principal)
CPT/HCPCS: 81001; 87086

== ENCOUNTER 2024-03-21 10:05 | Outpatient (OUT) | payer SELFPAY ==
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
[2024-03-21 10:31] LABS: Bilirubin Urine NEGATIVE (NEGATIVE); Blood Urine TRACE-I (NEGATIVE); Clarity Urine CLEAR (CLEAR); Glucose Urine UA NEGATIVE (NEGATIVE); Ketones Urine NEGATIVE (NEGATIVE); Leukocyte Esterase Urine SMALL (NEGATIVE); Nitrite Urine POSITIVE (NEGATIVE); Protein Urine NEGATIVE (NEG/TRACE); Urobilinogen Urine 0.2 EU/dL (0.2-1.0); pH Urine 6.5 (5.0-9.0)
[2024-03-21 10:32] LABS: Color Urine DK YELLOW (YELLOW)
== END 2024-03-21 10:06 | disposition home or self-care (01) ==
LOC: LAB 10:07
PROVIDERS: PCP Family Medicine; Visit Provider Nurse Practitioner Family
DX: R30.0 Dysuria (principal)
CPT/HCPCS: 81003; 87086; 87150; 87186

== ENCOUNTER 2024-10-03 12:22 | Outpatient (REF) | payer OTHER, SELFPAY ==
--- OUTSIDE RECORDS SUMMARY | 2024-04-03 08:24 | XMS_ITS ---
Author Organization [facility] in [place] Address [address] [place] [address] Care Team Providers Care Marine Biologist Name Role Phone Uriel Manrique Primary Care Provider [phone] Nuris Arriaza [phone] REASON FOR VISIT rf Semaglutide early Medications Medication SIG (Take, Route, Frequency, Duration) Notes Start Date End Date Status Semaglutide 2.268 mg/0.63 mL 2.268 mg/0.63 mL 0.63 mL Subcutaneous Once weekly for 28 days 11/22/2023 Active Encounters Encounter Location Date Provider Diagnosis [address] [address] 04/03/2024 Nuris Sylvester Plan Of Treatment Medication Medication Name Sig Start Date Stop Date Notes Semaglutide 2.268 mg/0.63 mL 2.268 mg/0.63 mL 0.63 mL Subcutaneous Once weekly for 28 days 11/22/2023 Progress Notes * Hawa THOMAS MDOB:[birth year] (58 yo F)Acc No.[id number]:04/03/2024 Patient: Zoran BEAHCHawa :1965 A ge:58 Y S ex:Female Address:[address] [place] [address] * Refills Refill Semaglutide 2.268 mg/0.63 mL Soultion Auto-injector, 2.268 mg/0.63 mL, Subcutaneous, 4, 0.63 mL, Once weekly, 28 days, Refills=5 Subjective: * Chief Complaints: * r f Semaglutide early * Medical History: * Surgical History: * Hospitalization/Major Diagno stic Procedure: * Medications: Objective: * Vitals: * Physical Examination: Assessment: Plan: * Treatment: * Procedure Codes: * true * Date: Generated for Andres howell/Symone/Jacobitting on: 0 10/03/2024 12:24 PM EDT
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
--- OUTSIDE RECORDS SUMMARY | 2024-10-03 06:09 | XMS_ITS ---
Author Organization [facility] in [place] Address [address] [place] [address] Care Team Providers Care Supervisor Remelt Name Role Phone Uriel Manriqeu Primary Care Provider [phone] Nuris Arriaza [phone] Encounters Encounter Location Date Provider Diagnosis [facility] [address] [place] [address] 10/03/2024 Nuris Sylvester Dysuria R30.0 Assessments Encounter Date Diagnosis (ICD Code) Assessment Notes Treatment Notes Treatment Clinical Notes Section Notes 10/03/2024 Dysuria (ICD-10 - R30.0) Plan Of Treatment Pending Test Test Name Order Date UA (URINALYSIS, COMPLETE) 10/03/2024 Urine Culture 10/03/2024 Progress Notes * Hawa THOMAS MDOB:[birth year] (59 yo F)Acc No.[id number]:10/03/2024 Patient: Hawa PARKER :1965 A ge:59 Y S ex:Female Address:[address] [place] [address], [id number] Subjective: * Chief Complaints: * * Medical History: * Surgical History: * Hospitalization/Major Diagno stic Procedure: * Medications: Objective: * Vitals: * Physical Examination: Assessment: * Assessment: 1. D ysuria - R30.0 (Primary) Plan: * Treatment: * Procedure Codes: * true * Date: Generated for Printi ng/Faxing/eTransmitting on: 0 10/03/2024 12:24 PM EDT
--- OUTSIDE RECORDS SUMMARY | 2024-10-03 12:24 | XMS_ITS | Encounter Summary ---
Author Organization [facility] Address [address] [place] [address] Care Team Providers Care Fiscal Services Manager Name Role Phone Ric Manrique MD Primary Care Provider [phone] Source Comments In the event this information is protected by the Federal Confidentiality of Alcohol and Drug AbusePatient Records regulations: The Federal rules restrict any use of the information to criminally investigate or prosecute any alcohol or drug abuse patient.[facility] Encounter Details Date Type Department Care Team (Late st Contact Info) Description 06/20/2022 Get Medical Advice Orthopaedics [address] [phone] Rosanne Monge PA-C [address] [address] Pain & Restrictions Social History Tobacco Use Types Packs/Day Years Used Date Smoking Tobacco: Former Cigarettes 1 10 Alcohol Use Standard Drinks/Week Comments Not Asked 0 (1 standard drink = 0.6 oz pur e alcohol) Area Deprivation Index Answer Date Saud rded National Score (1-100), lower number is lower ri sk 86 06/05/2022 State Score (1-10), lower number is lower risk N ot on file 06/05/2022 Data from: https://www.neighborhoodatlas.[facility]/. 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 Answer Date of Assessment Author No 09/11/2013 2:51 PM EDT Bhavani Marion LPN * Are you blind or do you have serious difficulty seeing, even when wearing glasses? Answer Date of Assessment Author No 09/11/2013 2:51 PM EDT Bhavnai Marion LPN * Do you have serious difficulty walking or climbing stairs? Answer Date of Assessment Author No 09/11/2013 2:51 PM EDT Bhavani Marion LPN * Do you have difficulty dressing or bathing? Answer Date of Assessment Author No 09/11/2013 2:51 PM EDT Bhavani Marion LPN * Because of a physical, mental, or emotional condition, do you have difficulty doing errands alone such as visiting a doctor's office or shopping? Answer Date of Assessment Author No 09/11/2013 2:51 PM EDT Bhavani Marion LPN documented as of this encounter Mental Status * Because of a physical, mental, or emotional condition, do you have serious difficulty concentrating, remembering, or making decisions? Answer Entry Date Author No 09/11/2013 2:51 PM EDT Bhavani Marion LPN documented in this encounter Miscellaneous Notes * Telephone Encounter - Herbie Gonzalez RN - 06/22/2022 9:03 AM EST Images from the original note were not included. Last seen: 06/05/2022 DX: Closed fracture of multiple pubic rami, left, initial encounter (HCC) Closed nondisplaced fracture of medial wall of left acetabulum, initial encounter ([facility]) Portion of office note included below for reference: documented in this encounter Plan of Treatment Not on file documented as of this encounter Visit Diagnoses Not on filedocumented in this encounter Care Teams Fiscal Services Manager Relationship Specialty Start Date End Date Ric Manrique MD PCP - General Family Medicine 08/09/14 documented as of this encounter
--- OUTSIDE RECORDS SUMMARY | 2024-10-03 12:24 | XMS_ITS | Patient Health Record ---
Author Organization [facility] [place] Address [address] [place] [address] Care Team Providers Care General Manager Farm Name Role Phone Uriel Mejía Primary Care Provider NICKO MEJÍA Unavailable [phone] NgaNuris Unavailable [phone] Allergies No Known Allergies Results Component Value Reference Range Notes Urine Culture, Routine Reviewed date:03/24/2024 11:16:39 AM Interpretation: Performing Lab: Notes/Report: [facility] , Urine Culture, Routine See Below For Report Urine Culture, Routine Organism: Escherichia coli. : O:ESCHCO Isolated Organism: 1.1 Antibiotic Interpretation STACIE Status Urine Culture, Routine *ABNORMAL* Urine Culture, Routine Organism: Escherichia coli. : O:ESCHCO Isolated Organism: 1.1 Antibiotic Interpretation STACIE Status Urine Culture, Routine Greater than 100, 000 colony forming units per mL Urine Culture, Routine Organism: Escherichia coli. : O:ESCHCO Isolated Organism: 1.1 Antibiotic Interpretation STACIE Status Urine Culture, Routine Escherichia coli. Urine Culture, Routine Organism: Escherichia coli. : O:ESCHCO Isolated Organism: 1.1 Antibiotic Interpretation STACIE Status Urine Culture, Routine Organism: Escheri huey coli. : Urine Culture, Routine Organism: Escherichia coli. : O:ESCHCO Isolated Organism: 1.1 Antibiotic Interpretation STACIE Status Urine Culture, Routine *ABNORMAL* Urine Culture, Routine Organism: Escherichia coli. : O:ESCHCO Isolated Organism: 1.1 Antibiotic Interpretation STACIE Status Urine Culture, Routine Multi-Drug Resist ant Organism Urine Culture, Routine Organism: Escherichia coli. : O:ESCHCO Isolated Organism: 1.1 Antibiotic Interpretation STACIE Status Urine Culture, Routine Susceptibility pr ofile is consistent with a probable Urine Culture, Routine Organism: Escherichia coli. : O:ESCHCO Isolated Organism: 1.1 Antibiotic Interpretation STACIE Status Urine Culture, Routine ESBL. Urine Culture, Routine Organism: Escherichia coli. : O:ESCHCO Isolated Organism: 1.1 Antibiotic Interpretation STACIE Status Urine Culture, Routine Greater than 100, 000 colony forming units per mL Urine Culture, Routine Organism: Escherichia coli. : O:ESCHCO Isolated Organism: 1.1 Antibiotic Interpretation STACIE Status Urine Culture, Routine See Below For Report Urine Culture, Routine Organism: Escherichia coli. : O:ESCHCO Isolated Organism: 1.1 Antibiotic Interpretation STACIE Status Urine Culture, [facility]ine [facility], Routine Organism: Escherichia coli. : O:ESCHCO Isolated Organism: 1.1 Antibiotic Interpretation STACIE Status Urine Culture, Routine [address], [place] [id number] Urine Culture, Routine Organism: Escherichia coli. : O:ESCHCO Isolated Organism: 1.1 Antibiotic Interpretation STACIE Status Urine Culture, Routine Manufacturing Engineering Professor: Parish Wheat PhD, Phone: [phone] Urine Culture, Routine Organism: Escherichia coli. : O:ESCHCO Isolated Organism: 1.1 Antibiotic Interpretation STACIE Status Urine Culture, Routine See Below For Report Urine Culture, Routine Organism: Escherichia coli. : O:ESCHCO Isolated Organism: 1.1 Antibiotic Interpretation STACIE Status Urine Culture, Routine AMOXICILLIN/CLAVU LANIC ACID I F Urine Culture, Routine Organism: Escherichia coli. : O:ESCHCO Isolated Organism: 1.1 Antibiotic Interpretation STACIE Status Urine Culture, Routine Ampicillin R F Urine Culture, Routine Organism: Escherichia coli. : O:ESCHCO Isolated Organism: 1.1 Antibiotic Interpretation STACIE Status Urine Culture, Routine Cefazolin R F Urine Culture, Routine Organism: Escherichia coli. : O:ESCHCO Isolated Organism: 1.1 Antibiotic Interpretation STACIE Status Urine Culture, Routine Cefepime R F Urine Culture, Routine Organism: Escherichia coli. : O:ESCHCO Isolated Organism: 1.1 Antibiotic Interpretation STACIE Status Urine Culture, Routine Ceftriaxone R F Urine Culture, Routine Organism: Escherichia coli. : O:ESCHCO Isolated Organism: 1.1 Antibiotic Interpretation STACIE Status Urine Culture, Routine Cefuroxime R F Urine Culture, Routine Organism: Escherichia coli. : O:ESCHCO Isolated Organism: 1.1 Antibiotic Interpretation STACIE Status Urine Culture, Routine Ciprofloxacin R F Urine Culture, Routine Organism: Escherichia coli. : O:ESCHCO Isolated Organism: 1.1 Antibiotic Interpretation STACIE Status Urine Culture, Routine Ertapenem S F Urine Culture, Routine Organism: Escherichia coli. : O:ESCHCO Isolated Organism: 1.1 Antibiotic Interpretation STACIE Status Urine Culture, Routine Gentamicin R F Urine Culture, Routine Organism: Escherichia coli. : O:ESCHCO Isolated Organism: 1.1 Antibiotic Interpretation STACIE Status Urine Culture, Routine Imipenem S F Urine Culture, Routine Organism: Escherichia coli. : O:ESCHCO Isolated Organism: 1.1 Antibiotic Interpretation STACIE Status Urine Culture, Routine Levofloxacin R F Urine Culture, Routine Organism: Escherichia coli. : O:ESCHCO Isolated Organism: 1.1 Antibiotic Interpretation STACIE Status Urine Culture, Routine Meropenem S F Urine Culture, Routine Organism: Escherichia coli. : O:ESCHCO Isolated Organism: 1.1 Antibiotic Interpretation STACIE Status Urine Culture, Routine Nitrofurantoin R F Urine Culture, Routine Organism: Escherichia coli. : O:ESCHCO Isolated Organism: 1.1 Antibiotic Interpretation STACIE Status Urine Culture, Routine Tetracycline S F Urine Culture, Routine Organism: Escherichia coli. : O:ESCHCO Isolated Organism: 1.1 Antibiotic Interpretation STACIE Status Urine Culture, Routine Tobramycin I F Urine Culture, Routine Organism: Escherichia coli. : O:ESCHCO Isolated Organism: 1.1 Antibiotic Interpretation STACIE Status Urine Culture, Routine Trimethoprim/Sulf amethox azole S F Urine Culture, Routine Organism: Escherichia coli. : O:ESCHCO Isolated Organism: 1.1 Antibiotic Interpretation STACIE Status Urine Culture, Routine Piperacillin/Tazo bactam S F Urine Culture, Routine Organism: Escherichia coli. : O:ESCHCO Isolated Organism: 1.1 Antibiotic Interpretation STACIE Status Performing Lab: see note LC - [facility] LB SEE REPORT - Entry Tech Id information not found for OBX-specific livestock producer legend UA RANDOM Reviewed date:03/24/2024 11:16:47 AM Interpretation: Performing Lab: Notes/Report: [facility] , Color Urine DK YELLOW YELLOW Clarity Urine CLEAR CLEAR Specific [place] Urine 1.010 1.005-1.025 pH Urine 6.5 5.0-9.0 Protein Urine NEGATIVE NEG/TRACE mg/dL Glucose Urine UA NEGATIVE NEGATIVE mg/dL Bilirubin Urine NEGATIVE NEGATIVE Ketones Urine NEGATIVE NEGATIVE mg/dL Blood Urine TRACE-I NEGATIVE Nitrite Urine POSITIVE NEGATIVE Urobilinogen Urine 0.2 0.2-1.0 EU/dL Leukocyte Esterase Urine SMALL NEGATIVE Performing Lab: see note ML - [facility] Reason For Referral No Information Medications Medication SIG (Take, Route, Frequency, Duration) Notes Start Date End Date Status levoFLOXacin 750 MG 1 tablet Orally Once a day for 10 day(s) 07/27/2024 Active predniSONE 20 MG 2 tablets Orally Onc e a day for 5 days 07/27/2024 Active Semaglutide 2.268 mg/0.63 mL 2.268 mg/0.63 mL 0.63 mL Subcutaneous Once weekly for 28 days 11/22/2023 Active PROzac 20 MG 1 capsule Orally Onc e a day Active Diclofenac Sodium 75 MG TAKE 1 TABLET BY MOUTH TWICE A DAY NEEDED for 30 Active Tolterodine Tartrate ER 4 MG 2 capsule Orally Once a day for 30 days 06/08/2023 Active Social History Tobacco Use: Social History Observation Description Date Details (start date - stop date) Former Smoker NA - 03/30/2022 Tobacco Use/Smoking Question Answer Notes Patient is a former smoker When did you stop smoking? 03/30/2022 How long has it been since you last smoked? 6-12 months Alcohol Screen (Audit-C) Question Answer Notes Did you have a drink containing alcohol in the p ast year? No Points 0 Interpretation Negative Problems Problem Type SNOMED Code ICD Code Onset Dates Problem Status W/U Status Risk Notes Problem 08141105 Lower abdominal pain, unspecified (R10.30) Active confirmed Problem 34367787 Dysuria (R30.0) Active confirmed Problem Recurrent urinary tract infection (112919004) Recurrent UTI (N39.0) Active confirmed Problem Obesity (244135890) Obesity (E66.9) Active confirmed Problem Liver cyst (61291552) Liver cyst (K76.89) Active confirmed Vital Signs Temperature 98.1 degrees Fahrenheit 07/27/2024 Blood pressure diastolic 88 mm Hg 07/27/2024 Height 70 in 07/27/2024 Blood pressure systolic 170 mm Hg 07/27/2024 Weight 176.2 lbs 07/27/2024 BMI 25.28 kg/m2 07/27/2024 Encounters Encounter Location Date Provider Diagnosis [facility] [address] [place] [address] 07/27/2024 Uriel Mejía Acute non-recurrent sinusitis, unspecified location J01.90 and Nasal congestion R09.81 [facility] [address] [facility] [place] [address] 10/21/2023 NICKO MEJÍA [facility] [address] [facility] [place] [address] 11/19/2023 Uriel Mejía [facility] [address] [facility] [address] 03/09/2024 Uriel Mejía [facility] [address] [facility] [place] [address] 03/20/2024 Nuris Sylvester Dysuria R30.0 [facility] [address] [facility] [place] [address] 03/24/2024 Nuris Sylvester [facility] [address] [place] [place] [place] [address] 04/03/2024 Nuris Sylvester [facility] [address] [place] [place] [place] [address] 10/03/2024 Nuris Sylvester Dysuria R30.0 Assessments Encounter Date Diagnosis (ICD Code) Assessment Notes Treatment Notes Treatment Clinical Notes Section Notes 03/20/2024 Dysuria (ICD-10 - R30.0) 10/03/2024 Dysuria (ICD-10 - R30.0) 07/27/2024 Acute non-recurrent sinusitis, unspecified location (ICD-10 - J01.90) Rest and drink more liquids, especially water. You may use a humidifier or vaporizer to help keep the drainage moist. Andb-grl-aenleoi Nasal Saline may help the stuffy and runny nose. Use Ibuprofen and or Tylenol as needed for fever, chills, body aches or pain. Children 5 years old should not be given kigi-tjo-rfzjcfz cough and cold medications such as guaifenesin and dextromethorphan. If you're over age 5, you may try wxkj-alu-wquccpa cold medications such as guaifenesin and dextromethorphan, [...] congestion (ICD-10 - R09.81) Plan Of Treatment Pending Test Test Name Order Date CMP (COMPLETE METABOLIC PANEL) 4 UA (URINALYSIS, COMPLETE) 07/19/2023 UA (URINALYSIS, COMPLETE) 03/20/2024 UA (URINALYSIS, COMPLETE) 10/03/2024 UA (URINALYSIS, COMPLETE) 01/19/2023 UA (URINALYSIS, COMPLETE) 05/04/2023 UA (URINALYSIS, COMPLETE) 05/07/2023 HEMOGLOBIN A1C (GLYCO) 05/13/2023 LIPID PANEL (CHOL/TRIG/HDL/LDL) 05/13/19 CBC WITH DIFF 05/13/2023 Urinalysis Microscopic 06/08/2023 Urine Culture 10/03/2024 Urine Culture 03/20/2024 URINE CULTURE 07/19/2023 URINE CULTURE 01/19/2023 URINE CULTURE 05/07/2023 URINE CULTURE 05/04/2023 Insulin Level 05/13/2023 MRI Abdomen w/ + w/o Contrast 01/24/2023 CBC AUTO DIFF 01/27/2023 CULTURE URINE 06/10/2023 GLYCOHEMOGLOBIN A1C 01/27/2023 LIPID PROFILE 01/27/2023 PROF 14(COMP METB) 01/27/2023 THYROID PROFILE WITH TSH 01/27/2023 US KIDNEYS BLADDER 06/08/2023 THYROID PANEL (T4/TSH/FREE T3) 4 Insurance Providers Payer Name Payer Address Payer Phone Subscriber Number Group Number Insured Name Patient Relationship to Insured Coverage Start Date Coverage End Date [employer]OS[employer]ELLEN [employer]KYLA [employer] [address] ATTN CLAIMS [place], [place] [id number] Hawa Oliveira Self - patient is the insured Medical (General) History Medical History History ICD Code Bunion M21.619 fracture left pubis Surgical History Surgery Date(Month/Year) Foot Surgery- Left Ablation Hospitalization History Reason Date(Month/Year) Fractured Pelvis 05/2022
--- OUTSIDE RECORDS SUMMARY | 2024-10-03 12:25 | XMS_ITS | Clinical Summary ---
Author Organization [facility] Address [address] [place], [place] [id number] Care Team Providers Care Auto Parts Salesperson Name Role Phone Ric Manrique MD Primary Care Provider [phone] Allergies No known active allergies Medications PROZAC 20MG PULVULE Take one(1) capsule daily. 0 07/28/2002 Active oxyCODONE-aceta minophen (PERCOCET) 5-325 mg tablet Take 1 tablet by mouth every 4 hours as needed. Prn foot pain Active DEXMETHYLPHENID ATE HCL (FOCALIN ORAL) Take by mouth. Active MAGNESIUM ORAL Take by mouth. Active CALCIUM CARBONATE/VITAM IN D3 (VITAMIN D-3 ORAL) Take by mouth. Active POTASSIUM (POTASSIMIN ORAL) Take by mouth. Active VITAMIN B COMPLEX (B COMPLEX 1 ORAL) Take by mouth. Active BLACK COHOSH ORAL Take by mouth twice daily. Active BIOFLAV/MV-MN/S OYB/EVEPR/HRB32 (WOMENS MENOPAUSE ANNETTA [place] ORAL) Take by mouth. Active methylPREDNISol one (MEDROL, [place],) 4 mg Dose-Pack Take 1 tablet by mouth as directed. As directed on package 1 Package 0 09/11/2013 Active diclofenac XR (VOLTAREN-XR) 100 mg Tb24 Take 1 tablet by mouth once daily. Take with food. 30 tablet 1 09/11/2013 Active HYDROcodone-Erwin taminophen 7.5-325 mg per tablet Take 1 tablet by mouth every 6 hours as needed. 10 tablet 0 09/11/2013 Active Family History Medical History Relation Comments neck cancer [Other] Father tobacco user lung cancer [Other] Mother smoker Relation Status Comments Father Mother Social History Tobacco Use Types Packs/Day Years [...] N ot on file 06/05/2022 Data from: https://www.neighborhoodatlas.medicine.[facility]/. 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 Not on file Not on file Not on file Last Filed Vital Signs Vital Sign Reading Time Taken Comments Blood Pressure - - Pulse - - Temperature - - Respiratory Rate - - Oxygen Saturation - - Inhaled Oxygen Concentration - - Weight 90.7 kg (200 lb) 06/05/2022 2:44 PM EST Height 177.8 cm (5' 10 ) 06/05/2022 2:44 PM EST Body Mass Index 28.7 06/05/2022 2:44 PM EST Plan of Treatment Health Maintenance Due Date Last Done Comments Anxiety Screening 1982 Depression Screening 1982 HIV Screening 1982 Hepatitis C Screening 1982 DTaP,Tdap,Td Vaccine (1 - Tdap) 1983 Cervical Cancer Screening [address] Colonography 2009 Cologuard (FIT-DNA) 2009 Colonoscopy 2009 Colorectal Cancer Screening 2009 Diabetes Screening 2009 Fecal Occult Blood 2009 Lipid Screening 2009 Sigmoidoscopy 2009 Pneumococcal Vaccine: 50+ (1 of 1 - PCV) 2014 Shingrix Vaccine (1 of 2) 2014 Covid-19 Vaccine ( - season) 2024 04/17/2021, 08/06/2020, 07/15/2020 Influenza Vaccine (Season Ended) 2025 RSV Vaccine (1 - 1-dose 75+ series) 2039 Insurance [facility] Care Teams Auto Parts Salesperson Relationship Specialty Start Date End Date Ric Manrique MD PCP - General Family Medicine 08/09/14
--- OUTSIDE RECORDS SUMMARY | 2024-10-03 12:25 | XMS_ITS | Encounter Summary ---
Author Organization [facility] Address [address] [place] [address] Care Team Providers Care [employer] Superintendent [employer] Name Role Phone Ric Manrique MD Primary Care Provider [phone] Source Comments In the event this information is protected by the Federal Confidentiality of Alcohol and Drug AbusePatient Records regulations: The Federal rules restrict any use of the information to criminally investigate or prosecute any alcohol or drug abuse patient.[facility] Encounter Details Date Type Department Care Team (Late st Contact Info) Description 07/22/2022 Get Medical Advice Orthopaedics [address] [id number] Rosanne Monge PA-C [address] [address] Progress & Physical Therapy Social History Tobacco Use Types Packs/Day Years [...] N ot on file 06/05/2022 Data from: https://www.neighborhoodatlas.[facility]/. Last address used for calculation [address] [...] Bhavani Marion LPN * Do you have serious [...] Bhavani Marion LPN documented in this encounter Plan of Treatment Not on file documented as of this encounter Visit Diagnoses Not on filedocumented in this encounter Care Teams [place] [employer] Relationship Specialty Start Date End Date Ric Manrique MD PCP - General Family Medicine 08/09/14 documented as of this encounter
--- OUTSIDE RECORDS SUMMARY | 2024-10-03 12:25 | XMS_ITS | Clinical Summary ---
Author Organization [facility] Address [address] [place] [address] Care Team Providers Care Dock Superintendent Name Role Phone Unavailable Primary Care Provider Unavailabl e Allergies No known active allergies Medications FLUoxetine (PROZAC) 20 MG capsule Take 20 mg by mouth daily 07/28/2002 Active levofloxacin (LEVAQUIN) 750 MG tablet Take 750 mg by mouth daily Active predniSONE (DELTASONE) 50 MG tablet Take 50 mg by mouth daily Active benzonatate (TESSALON) 100 MG capsule Take 100 mg by mouth 3 times daily as needed for Cough Active Social History Tobacco Use Types Packs/Day Years Used Date Smoking Tobacco: Some Days Smokeless Tobacco: Never Alcohol Use Standard Drinks/Week Comments No 0 (1 standard drink = 0.6 oz pur e alcohol) Comments No Sex and Gender Information Value Date Recorded Sex Assigned at Not on file Legal Sex Female 2:10 AM EST Gender Identity Not on file Sexual Orientation Not on file Last Filed Vital Signs Vital Sign Reading Time Taken Comments Blood Pressure 138/86 11/28/2017 4:51 PM EDT Pulse 86 11/28/2017 4:51 PM EDT Temperature 36.8 C (98.2 F) 11/28/2017 4:51 PM EDT Respiratory Rate 18 11/28/2017 4:51 PM EDT Oxygen Saturation 97% 11/28/2017 4:51 PM EDT Inhaled Oxygen Concentration - - Weight 92.9 kg (204 lb 12.9 oz) 11/28/2017 4:51 PM EDT Height - - Body Mass Index - - Plan of Treatment Not on file Insurance [employer]
[2024-10-03 12:33] LABS: Bilirubin Urine NEGATIVE (NEGATIVE); Blood Urine NEGATIVE (NEGATIVE); Clarity Urine CLEAR (CLEAR); Color Urine LT. YELLOW (YELLOW); Glucose Urine UA NEGATIVE (NEGATIVE); Ketones Urine NEGATIVE (NEGATIVE); Leukocyte Esterase Urine NEGATIVE (NEGATIVE); Nitrite Urine NEGATIVE (NEGATIVE); Protein Urine NEGATIVE (NEG/TRACE); Specific Gravity Urine <=1.005 (1.005-1.025); Urobilinogen Urine 0.2 EU/dL (0.2-1.0); pH Urine 6.5 (5.0-9.0)
--- OUTSIDE RECORDS SUMMARY | 2024-10-03 12:40 | XMS_ITS | CCD ---
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 of Systems: Reviewed and charted into [employer]. Physical Exam: PE reveals a female with [...] of multiple pubic rami, left, initial encounter ([facility]) (primary encounter diagnosis) (S32.475A) Closed nondisplaced fracture of medial wall of left acetabulum, initial encounter ([facility]) Plan: Based upon the evaluation [...] plan of care. documented in this encounter [facility] 06-05-2022 Note HNO ID: [id number] Author: RT Jaqui(R) Service: ? Author Type: [...] RT Jaqui(R) June 05, 2022 2:49 PM [facility] 06-05-2022 History of Present illness Narrative [...] 2022 2:49 PM documented in this encounter [facility] 05-25-2022 Note PROCEDURE: XR HIP LT 2 [...] at this time. Electronically authenticated by: SAMUEL ACSTRO Date: 2022-05-25 14:11 [facility] Evaluation note Diagnosis Closed fracture of multiple pubic rami, left, initial encounter (HCC)- Primary Closed nondisplaced fracture of medial wall of left acetabulum, initial encounter ([facility]) [facility] Generalized pain [facility] Diagnosis Buttock pain- Primary Mylagia and myositis, unspecified Closed fracture of multiple pubic rami, left, initial encounter ([facility]) Closed nondisplaced fracture of medial wall of left acetabulum, initial encounter ([facility]) [facility] Diagnosis Pain Generalized pain Closed fracture of multiple pubic rami, left, initial encounter ([facility]) Closed nondisplaced fracture of medial wall of left acetabulum, initial encounter ([facility]) documented in this encounter [facility] for referral (narrative)* Diagnostic Procedure Only (Routine) - Pending Review Specialty Diagnoses / Procedures Referred By Contac t Referred To Contact XR IMAGING Diagnoses Closed fracture of multiple pubic rami, left, initial encounter ([facility]) Closed nondisplaced fracture of medial wall of left acetabulum, initial encounter ([facility]) Procedures XR HIP GENERAL 3V PELV/AP/LAT LEFT RADEX HIP UNILATERAL WITH PELVIS 2-3 VIEWS Berto Monge PA-C [address] [place], [place] [id number] Xr Imaging Referral ID Status Reason Start Date Expiration Date Visits Requested Visits Authorized [id number] Pending Review Auto-Generat ed Referral 06/05/2022 07/05/2023 1 1 * Diagnostic Procedure Only (Routine) - Pending Review Specialty Diagnoses / Procedures Referred By Contac t Referred To Contact XR IMAGING Diagnoses Closed fracture of multiple pubic rami, left, initial encounter ([facility]) Closed nondisplaced fracture of medial wall of left acetabulum, initial encounter ([facility]) Procedures XR PELVIS 1V AP RADIOLOGIC EXAMINATION PELVIS 1/2 VIEWS Berto Monge PA-C [address] [place] [id number] Xr Imaging Referral ID Status Reason Start Date Expiration Date Visits Requested Visits Authorized [id number] Pending Review Auto-Generat ed Referral 06/05/2022 07/05/2023 1 1 [facility] for referral (narrative)* Diagnostic Procedure Only (Routine) - Closed Specialty Diagnoses / Procedures Referred By Contac t Referred To Contact XR IMAGING Diagnoses Pain Procedures XR FEMUR GENERAL 2V AP/LAT RIGHT RADIOLOGIC EXAMINATION FEMUR MINIMUM 2 VIEWS Berto Monge PA-C [address] [place] [id number] Xr Imaging Referral ID Status Reason Start Date Expiration Date V isits Requested Visits Authorized [id number] Closed Auto-Generate d Referral 06/04/2022 07/04/2023 1 1 * Diagnostic Procedure Only (Routine) - Closed Specialty Diagnoses / Procedures Referred By Contac t Referred To Contact XR IMAGING Diagnoses Pain Procedures XR FEMUR GENERAL 2V AP/LAT LEFT RADIOLOGIC EXAMINATION FEMUR MINIMUM 2 VIEWS Berto Monge PA-C [address] [place] [address] Xr Imaging Referral ID Status Reason Start Date Expiration Date V isits Requested Visits Authorized [id number] Closed Auto-Generate d Referral 06/04/2022 07/04/2023 1 1 * Diagnostic Procedure Only (Routine) - Closed Specialty Diagnoses / Procedures Referred By Contac t Referred To Contact XR IMAGING Diagnoses Pain Procedures XR PELVIS 2V INLET/OUTLET RADIOLOGIC EXAMINATION PELVIS 1/2 VIEWS Berto Monge PA-C [address] [place] [phone] Xr Imaging Referral ID Status Reason Start Date Expiration Date V isits Requested Visits Authorized [id number] Closed Auto-Generate d Referral 06/04/2022 07/04/2023 1 1 [facility] for referral (narrative)* Diagnostic Procedure Only (Routine) - Closed Specialty Diagnoses / Procedures Referred By Contac t Referred To Contact XR IMAGING Diagnoses Pain Procedures XR HIP BILATERAL 5V PEL/AP/LAT EACH HIP RADEX HIPS BILATERAL WITH PELVIS MINIMUM 5 VIEWS Berto Monge PA-C [address] [place] [address] Xr Imaging [id number] Referral ID Status Reason Start Date Expiration Date V isits Requested Visits Authorized [id number] Closed Auto-Generate d Referral 06/04/2022 07/04/2023 1 1 [facility] for visit Narrative* Diagnostic Procedure Only (Routine) - Closed Specialty Diagnoses / Procedures Referred By Contac t Referred To Contact XR IMAGING Diagnoses Closed fracture of multiple pubic rami, left, initial encounter ([facility]) Closed nondisplaced fracture of medial wall of left acetabulum, initial encounter ([facility]) Procedures XR HIP GENERAL 3V PELV/AP/LAT LEFT RADEX HIP UNILATERAL WITH PELVIS 2-3 VIEWS Berto Monge PA-C [address] [place] [address] Xr Imaging [place] [id number] Referral ID Status Reason Start Date Expiration Date V isits Requested Visits Authorized [id number] Closed Auto-Generate d Referral 06/05/2022 07/05/2023 1 1 [facility] Summary Purpose Family History No Family History Records FoundNo Family History Records FoundNo Family History Records Found Advance Directives No Advanced Directives Records FoundNo Advanced Directives Records FoundNo Advanced Directives Records Found Reason for Referral Specialty Diagnoses / Procedures Referred By Contac t Referred To Contact [facility] [place] Diagnoses Closed fracture of multiple pubic rami, left, initial encounter ([facility]) Closed nondisplaced fracture of medial wall of left acetabulum, initial encounter ([facility]) Buttock pain Procedures CONSULT TO [facility] OFFICE/OUTPATIENT [facility] 60-74 MINUTES Yan Dallas MD [address] [place] [address] Referral ID Status Reason Start Date Expiration Date Visits Requested Visits Authorized [id number] Authorized PCP Requested Referral 06/23/2022 06/23/2023 1 1 Additional Source Comments INFORMATION SOURCE (unrecogn ized section and content) DATE CREATED AUTHOR 11/29/2017 Brunilda alberto DATE CREATED AUTHOR AUTHOR'S ORGANIZ ATION 06/06/2022 [facility] DATE CREATED AUTHOR AUTHOR'S ORGANRJ ATION 07/18/2022 [facility] Gumaro hernandez Source Comments (unrecognize d section and content) In the event this informatio n is protected by the Federal Confidentiality of Alcohol and Drug Abuse Patient Records regulations: The Federal rules restrict any use of the information to criminally investigate or prosecute any alcohol or drug abuse patient.[facility] the event this information is protected by the Federal Confidentiality of Alcohol and Drug Abuse Patient Records regulations: The Federal rules restrict any use of the information to criminally investigate or prosecute any alcohol or drug abuse patient.[facility] the event this information is protected by the Federal Confidentiality of Alcohol and Drug Abuse Patient Records regulations: The Federal rules restrict any use of the information to criminally investigate or prosecute any alcohol or drug abuse patient.[facility] the event this information is protected by the Federal Confidentiality of Alcohol and Drug Abuse Patient Records regulations: The Federal rules restrict any use of the information to criminally investigate or prosecute any alcohol or drug abuse patient.[facility] the event this information is protected by the Federal Confidentiality of Alcohol and Drug Abuse Patient Records regulations: The Federal rules restrict any use of the information to criminally investigate or prosecute any alcohol or drug abuse patient.[facility] Reason for Visit (unrecogniz ed section and content) Reason Comments Fracture Reason Comments Radio Gen A21 Specialty Diagnoses / Procedures Referred By Contac t Referred To Contact XR IMAGING Diagnoses Pain Procedures XR FEMUR GENERAL 2V AP/LAT RIGHT RADIOLOGIC EXAMINATION FEMUR MINIMUM 2 VIEWS Berto Monge PA-C [address] [place] [address] Xr Imaging Referral ID Status Reason Start Date Expiration Date V isits Requested Visits Authorized [id number] Closed Auto-Generate d Referral 06/04/2022 07/04/2023 1 1 Reason Comments Radiology XR Care Teams (unrecognized sec tion and content) Chief Hospital Administrator Relationship Specialty Start Date End Date Nicko Manrique MD PCP - General Family Medicine 08/09/14 Chief Hospital Administrator Relationship Specialty Start Date End Date Nicko Manrique MD PCP - General Family Medicine 08/09/14 Chief Hospital Administrator Relationship Specialty Start Date End Date Nicko Manrique MD PCP - General Family Medicine 08/09/14 Chief Hospital Administrator Relationship Specialty Start Date End Date Nicko Manrique MD PCP - General Family Medicine 08/09/14 Chief Hospital Administrator Relationship Specialty Start Date End Date Nicko [...] BE BASED ON THE PRIMARY CLINICAL RECORDS. [facility] [employer] [facility]. provides no warranty or guarantee of the accuracy or completeness of information in this document.
[2024-10-03 12:44] LABS: Bacteria Urine NONE SEEN #/HPF (NONE SEEN); Cast Seen? NONE SEEN #/LPF (NONE SEEN); Crystals Seen? None Seen #/HPF (None Seen); Mucus Urine NONE SEEN (NONE SEEN); RBC Urine 0-2 #/HPF (0-2); Squamous Epithelial Cell Urine NONE SEEN #/LPF (NONE/RARE)
--- OUTSIDE RECORDS SUMMARY | 2024-10-03 12:45 | XMS_ITS | CCD ---
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 PM documented in this encounter [facility] 05-25-2022 Note PROCEDURE: XR HIP LT 2 [...] authenticated by: SAMUEL CASTRO Date: 2022-05-25 14:11 [facility] Evaluation note Diagnosis Closed fracture of multiple pubic rami, left, initial encounter (HCC)- Primary Closed nondisplaced fracture of medial wall of left acetabulum, initial encounter ([facility]) [facility] Generalized pain [facility] Diagnosis Buttock pain- Primary Mylagia and myositis, unspecified Closed fracture of multiple pubic rami, left, initial encounter ([facility]) Closed nondisplaced fracture of medial wall of left acetabulum, initial encounter ([facility]) [facility] Diagnosis Pain Generalized pain Closed fracture of multiple pubic rami, left, initial encounter ([facility]) Closed nondisplaced fracture of medial wall of left acetabulum, initial encounter ([facility]) documented in this encounter [facility] for referral (narrative)* Diagnostic Procedure Only (Routine) - Pending Review Specialty Diagnoses / Procedures Referred By Contac t Referred To Contact XR IMAGING Diagnoses Closed fracture of multiple pubic rami, left, initial encounter ([facility]) Closed nondisplaced fracture of medial wall of left acetabulum, initial encounter ([facility]) Procedures XR HIP GENERAL 3V PELV/AP/LAT LEFT RADEX HIP UNILATERAL WITH PELVIS 2-3 VIEWS Berto Monge PA-C [address] [place], [place] [id number] Xr Imaging Referral ID Status Reason Start Date Expiration Date Visits Requested Visits Authorized [id number] Pending Review Auto-Generat ed Referral 06/05/2022 07/05/2023 1 1 * Diagnostic Procedure Only (Routine) - Pending Review Specialty Diagnoses / Procedures Referred By Contac t Referred To Contact XR IMAGING Diagnoses Closed fracture of multiple pubic rami, left, initial encounter ([facility]) Closed nondisplaced fracture of medial wall of left acetabulum, initial encounter ([facility]) Procedures XR PELVIS 1V AP RADIOLOGIC EXAMINATION PELVIS 1/2 VIEWS Berto Monge PA-C [address] [place] [id number] Xr Imaging Referral ID Status Reason Start Date Expiration Date Visits Requested Visits Authorized [id number] Pending Review Auto-Generat ed Referral 06/05/2022 07/05/2023 1 1 [facility] for referral (narrative)* Diagnostic Procedure Only (Routine) - Closed Specialty Diagnoses / Procedures Referred By Contac t Referred To Contact XR IMAGING Diagnoses Pain Procedures XR FEMUR GENERAL 2V AP/LAT RIGHT RADIOLOGIC EXAMINATION FEMUR MINIMUM 2 VIEWS Berto Monge PA-C [address] [place] [phone] Xr Imaging Referral ID Status Reason Start Date Expiration Date V isits Requested Visits Authorized [id number] Closed Auto-Generate d Referral 06/04/2022 07/04/2023 1 1 * Diagnostic Procedure Only (Routine) - Closed Specialty Diagnoses / Procedures Referred By Contac t Referred To Contact XR IMAGING Diagnoses Pain Procedures XR FEMUR GENERAL 2V AP/LAT LEFT RADIOLOGIC EXAMINATION FEMUR MINIMUM 2 VIEWS Berto Monge PA-C [address] [facility] [place] [address] Xr Imaging Referral ID Status Reason Start Date Expiration Date V isits Requested Visits Authorized [id number] Closed Auto-Generate d Referral 06/04/2022 07/04/2023 1 1 * Diagnostic Procedure Only (Routine) - Closed Specialty Diagnoses / Procedures Referred By Contac t Referred To Contact XR IMAGING Diagnoses Pain Procedures XR PELVIS 2V INLET/OUTLET RADIOLOGIC EXAMINATION PELVIS 1/2 VIEWS Berto Monge PA-C [address] [facility] [place] [phone] Xr Imaging Referral ID Status Reason Start Date Expiration Date V isits Requested Visits Authorized [id number] Closed Auto-Generate d Referral 06/04/2022 07/04/2023 1 1 [facility] for referral (narrative)* Diagnostic Procedure Only (Routine) - Closed Specialty Diagnoses / Procedures Referred By Contac t Referred To Contact XR IMAGING Diagnoses Pain Procedures XR HIP BILATERAL 5V PEL/AP/LAT EACH HIP RADEX HIPS BILATERAL WITH PELVIS MINIMUM 5 VIEWS Berto Monge PA-C [address] [place] [address] Xr Imaging [id number] Referral ID Status Reason Start Date Expiration Date V isits Requested Visits Authorized [id number] Closed Auto-Generate d Referral 06/04/2022 07/04/2023 1 1 [facility] for visit Narrative* Diagnostic Procedure Only (Routine) - Closed Specialty Diagnoses / Procedures Referred By Contac t Referred To Contact XR IMAGING Diagnoses Closed fracture of multiple pubic rami, left, initial encounter ([facility]) Closed nondisplaced fracture of medial wall of left acetabulum, initial encounter ([facility]) Procedures XR HIP GENERAL 3V PELV/AP/LAT LEFT RADEX HIP UNILATERAL WITH PELVIS 2-3 VIEWS Berto Monge PA-C [address] [place] [address] Xr Imaging [place] [id number] Referral ID Status Reason Start Date Expiration Date V isits Requested Visits Authorized [id number] Closed Auto-Generate d Referral 06/05/2022 07/05/2023 1 1 [facility] Summary Purpose Family History No Family History Records FoundNo Family History Records FoundNo Family History Records Found Advance Directives No Advanced Directives Records FoundNo Advanced Directives Records FoundNo Advanced Directives Records Found Reason for Referral Specialty Diagnoses / Procedures Referred By Contac t Referred To Contact [facility] Diagnoses Closed fracture of multiple pubic rami, left, initial encounter ([facility]) Closed nondisplaced fracture of medial wall of left acetabulum, initial encounter ([facility]) Buttock pain Procedures [facility]OUTPATIENT [facility] 60-74 MINUTES Yan Dallas MD [address] [place] [address] Referral ID Status Reason Start Date Expiration Date Visits Requested Visits Authorized [id number] Authorized PCP Requested Referral 06/23/2022 06/23/2023 1 1 Additional Source Comments INFORMATION SOURCE (unrecogn ized section and content) DATE CREATED AUTHOR 11/29/2017 Brunilda alberto DATE CREATED AUTHOR AUTHOR'S ORGANIZ ATION 06/06/2022 [facility] DATE CREATED AUTHOR AUTHOR'S ORGANRJ ATION 07/18/2022 [facility] Gumaro hernandez Source Comments (unrecognize d section and content) In the event this informatio n is protected by the Federal Confidentiality of Alcohol and Drug Abuse Patient Records regulations: The Federal rules restrict any use of the information to criminally investigate or prosecute any alcohol or drug abuse patient.[facility] the event this information is protected by the Federal Confidentiality of Alcohol and Drug Abuse Patient Records regulations: The Federal rules restrict any use of the information to criminally investigate or prosecute any alcohol or drug abuse patient.[facility] the event this information is protected by the Federal Confidentiality of Alcohol and Drug Abuse Patient Records regulations: The Federal rules restrict any use of the information to criminally investigate or prosecute any alcohol or drug abuse patient.[facility] the event this information is protected by the Federal Confidentiality of Alcohol and Drug Abuse Patient Records regulations: The Federal rules restrict any use of the information to criminally investigate or prosecute any alcohol or drug abuse patient.[facility] the event this information is protected by the Federal Confidentiality of Alcohol and Drug Abuse Patient Records regulations: The Federal rules restrict any use of the information to criminally investigate or prosecute any alcohol or drug abuse patient.[facility] Reason for Visit (unrecogniz ed section and content) Reason Comments Fracture Reason Comments Radio Gen A21 Specialty Diagnoses / Procedures Referred By Contac t Referred To Contact XR IMAGING Diagnoses Pain Procedures XR FEMUR GENERAL 2V AP/LAT RIGHT RADIOLOGIC EXAMINATION FEMUR MINIMUM 2 VIEWS Berto Monge PA-C [address] [place] [address] Xr Imaging Referral ID Status Reason Start Date Expiration Date V isits Requested Visits Authorized [id number] Closed Auto-Generate d Referral 06/04/2022 07/04/2023 1 1 Reason Comments Radiology XR Care Teams (unrecognized sec tion and content) Adult Neurologist Relationship Specialty Start Date End Date Nicko Manrique MD PCP - General Family Medicine 08/09/14 Adult Neurologist Relationship Specialty Start Date End Date Nicko Manrique MD PCP - General Family Medicine 08/09/14 Adult Neurologist Relationship Specialty Start Date End Date Nicko Manrique MD PCP - General Family Medicine 08/09/14 Adult Neurologist Relationship Specialty Start Date End Date Nicko Manrique MD PCP - General Family Medicine 08/09/14 Adult Neurologist Relationship Specialty Start Date End Date Nicko [...] BE BASED ON THE PRIMARY CLINICAL RECORDS. [facility] [employer] [facility]. provides no warranty or guarantee of the accuracy or completeness of information in this document.
== END 2024-10-03 12:23 | disposition home or self-care (01) ==
LOC: LAB 12:22
PROVIDERS: PCP Family Medicine; Visit Provider Nurse Practitioner Family
DX: R30.0 Dysuria (principal)
CPT/HCPCS: 81001; 87086